=== PATIENT | male | born 1945 | race Caucasian/White ===

== ENCOUNTER → 2017-01-10 | Outpatient (CLI) | payer MEDICARE ==
--- NOTE | 2017-01-10 15:25 | US ---
EXAMINATION TYPE: US thyroid st tissue head/neck DATE OF EXAM: 01/10/2017 COMPARISON: US 11/25/2014 CLINICAL HISTORY: E04.1 Thyroid Nodule. F/U previous GLAND SIZE: Right Lobe: 3.7 x 1.5 x 1.8 cm Overall Parenchyma: homogenous Left Lobe: 4.5 x 1.5 x 1.5 cm Overall Parenchyma: homogeneous Isthmus Thickness: 0.3 cm NODULES RIGHT: # of nodules measured on right: 1 1. 0.6 X 0.7 x 0.7 cm hypoechoic mixed nodule at the lower pole with well-defined margins; This no dule is wider than tall and shows no intranodular vascularity. Prior size: 0.6 x 0.4 x 0.4 cm LEFT: # of nodules measured on left: 0 ISTHMUS: # of nodules measured in the isthmus: 0 Bilateral neck scanned, no evidence of lymphadenopathy. Sub-centimeter nodule on right, slightly incr eased in size from previous IMPRESSION: Subcentimeter nodule right lobe thyroid, stable.
== END ==
LOC: RADUSWWP 14:47
PROVIDERS: ATTEND Otolaryngology
DX: E04.1 Nontoxic single thyroid nodule (principal)
CPT/HCPCS: 76536

== ENCOUNTER → 2023-04-30 | Outpatient (CLI) | payer MEDICARE ==
--- NOTE | 2023-04-30 13:38 | XR ---
EXAMINATION TYPE: XR chest 2V DATE OF EXAM: 04/30/2023 1:33 PM COMPARISON: None TECHNIQUE: XR chest 2V Frontal and lateral views of the chest. CLINICAL INDICATION:Male, 77 years old with history of Z87.891 PERSONAL HISTORY OF NICOTINE DEPENDENC E; FINDINGS: Lungs/Pleura: There is no evidence of pleural effusion, focal consolidation, or pneumothorax. Pulmonary vascularity: Unremarkable. Heart/mediastinum: Cardiomediastinal silhouette is unremarkable. Atherosclerotic calcifications are seen in the aorta. Musculoskeletal: Multiple level degenerative disc disease changes seen throughout the spine. Other: Surgical clips in the upper abdomen. IMPRESSION: No acute cardiopulmonary disease/process.
== END | disposition home or self-care (01) ==
LOC: RADXRMAIN 13:17
PROVIDERS: ATTEND Family Medicine
DX: I70.0 Atherosclerosis of aorta (principal); R07.9 Chest pain, unspecified; Z87.891 Personal history of nicotine dependence
CPT/HCPCS: 71046

== ENCOUNTER 2023-11-19 07:55 | Emergency (ER) | payer MEDICARE ==
--- NOTE | 2023-11-19 08:19 | ED ---
General Adult HPI - General Chief complaint: Extremity Problem,Nontraumatic Stated complaint: L Leg Pain Time Seen by Provider: 11/19/23 08:09 Source: patient, RN notes reviewed, old records reviewed Mode of arrival: ambulatory Limitations: no limitations - History of Present Illness Initial comments: Patient is a 78-year-old male who presents emergency department complaining of left hip and leg pain. Atraumatic pain. Began yesterday morning. Walks daily on a treadmill and noticed that after this. States it started in his left groin and now radiates over the anterior aspect of his left thigh. Denies any leg swelling. Denies any sensory deficits. States it is worse with movement and when bearing weight. Denies any back pain. Pain is worse with flexion of the left hip. Denies any naomi knee pain or distal left lower extremity pain. Presents for further evaluation at this time. Has a history of hypertension, hyperlipidemia - Related Data Home Medications Medication Instructions Recorded Confirmed ALPRAZolam [Xanax] 0.25 mg PO HS 05/23/14 08/16/14 Aspirin EC [Ecotrin Low Dose] 81 mg PO DAILY 05/23/14 08/16/14 Pravastatin Sodium [Pravachol] 80 mg PO HS 05/23/14 08/16/14 amLODIPine BESYLATE/BENAZEPRIL 1 each PO DAILY 05/23/14 08/16/14 [Lotrel 5-20 MG] Fish Oil/Dha/Epa [Fish Oil 1,200 1 each PO DAILY 08/15/14 08/16/14 mg Fish Oil] Previous Rx's Medication Instructions Recorded HYDROcodone/APAP 7.5-325MG [Kinder 1 each PO Q4H PRN #60 tab 06/03/14 7.5] Cyclobenzaprine [Flexeril] 5 mg PO TID PRN 7 Days #21 tablet 11/19/23 Allergies Allergy/AdvReac Type Severity Reaction Status Date / Time No Known Allergies Allergy Verified 11/19/23 08:05 Review of Systems ROS Statement: Those systems with pertinent positive or pertinent negative responses have been documented in the HPI. Review of Systems: CONST: Denies fever EYES: Denies blurry vision ENT: Denies nasal congestion C/V: Denies Chest pain RESP: Denies shortness of breath GI: Denies abdominal pain : Denies dysuria SKIN: Denies rash. MSK: Endorses left hip and leg pain NEURO: Denies headache ROS Other: All systems not noted in ROS Statement are negative. Past Medical History Past Medical History: COPD, Hyperlipidemia, Hypertension, Osteoarthritis (OA) Additional Past Medical History / Comment(s): THYROID NODULE,FUCHS DISEASE OF THE CORNEA. History of Any Multi-Drug Resistant Organisms: None Reported Past Surgical History: Cholecystectomy, Joint Replacement Additional Past Surgical History / Comment(s): AKIRA CATARACTS, right knee replaced Past Anesthesia/Blood Transfusion Reactions: No Reported Reaction Past Psychological History: Anxiety Smoking Status: Never smoker Past Alcohol Use History: Occasional Past Drug Use History: None Reported - Past Family History Sister(s) Family Medical History: Cancer Additional Family Medical History / Comment(s): OVARIAN CA General Exam - General Exam Comments Initial Comments: General: Appears in mild distress secondary to left leg pain. HEAD: Normal with no signs of head trauma. EYES: EOMI. ENT: Hearing grossly intact. RESPIRATORY: No respiratory distress. C/V: Regular rate and rhythm. Pulses 2+ intact throughout. No edema in the left lower extremity. ABD: Abdomen is nondistended. EXT: No obvious deformity. Left leg is not shortened. Reduced range of motion of the left hip secondary to pain. Seems to be isolated in the left groin as well as the left quadriceps muscle. No posterior tenderness. No tenderness to palpation of the knee or distal to the knee. Neurovascular intact in the left lower extremity other than weakness secondary to pain. Seems to be worse with flexion. SKIN: No rashes or lesions observed on exposed skin. NEURO: Alert and oriented. No focal deficits, other than reduced range of motion of the left hip secondary to pain. Limitations: no limitations Course Vital Signs 11/19/23 11/19/23 08:02 10:19 Temperature 97.9 F 98 F Pulse Rate 95 91 Respiratory 20 18 Rate Blood Pressure 113/73 112/77 O2 Sat by Pulse 98 98 Oximetry Medical Decision Making - Medical Decision Making Was pt. sent in by a medical professional or institution (, PA, [employer], urgent care, hospital, or jail...) When possible be specific @ -No Did you speak to anyone other than the patient for history (EMS, parent, family, police, friend...)? What history was obtained from this source @ -No Did you review nursing and triage notes (agree or disagree)? Why? @ -I reviewed and agree with nursing and triage notes Were old charts reviewed (outside hosp., previous admission, EMS record, old EKG, old radiological studies, urgent care reports/EKG's, jail records)? Report findings @ -Old charts reviewed Differential Diagnosis (chest pain, altered mental status, abdominal pain women, abdominal pain men, vaginal bleeding, weakness, fever, dyspnea, syncope, headache, dizziness, GI bleed, back pain, seizure, CVA, palpatations, mental health, musculoskeletal)? @ -Differential Musculoskeletal Muscular strain, contusion, ligament sprain, fracture, arthritis, septic arthritis, bursitis, cellulitis, muscle spasm, nerve compression, DVT, arterial occlusion, herpes zoster, electrolyte abnormality, tumor.... This is not meant to be in all inclusive list EKG interpreted by me (3pts min.). @ -Not done X-rays interpreted by me (1pt min.). @ -Pelvis x-ray negative for any obvious traumatic injury CT interpreted by me (1pt min.). @ -Considered CT pelvis to rule out occult fracture but patient is ambulatory at this time. We both agreed to defer at this time. If symptoms worsen he can be present for evaluation. U/S interpreted by me (1pt. min.). @ -Ultrasound negative for DVT What testing was considered but not performed or refused? (CT, X-rays, U/S, labs)? Why? @ -None What meds were considered but not given or refused? Why? @ -None Did you discuss the management of the patient with other professionals (professionals i.e. , PA, [employer]ER, lab, RT, psych nurse, social media content specialist, supervisor of guidance and testing, teacher, chief nursing officer, case making machine operator)? Give summary @ -No Was smoking cessation discussed for >3mins.? @ -No Was critical care preformed (if so, how long)? @ -No Were there social determinants of health that impacted care today? How? (Homelessness, low income, unemployed, alcoholism, drug addiction, transportation, low edu. Level, literacy, decrease access to med. care, group home, rehab)? @ -No Was there de-escalation of care discussed even if they declined (Discuss DNR or withdrawal of care, Hospice)? DNR status @ -No What co-morbidities impacted this encounter? (DM, HTN, Smoking, COPD, CAD, Cancer, CVA, ARF, Chemo, Hep., AIDS, mental health diagnosis, sleep apnea, morbid obesity)? @ -None Was patient admitted / discharged? Hospital course, mention meds given and route, prescriptions, significant lab abnormalities, going to OR and other pertinent info. @ -Based on the patient's presentation and physical exam, presents the emergency department for evaluation of atraumatic left hip and leg pain. Seems to be musculoskeletal in nature, possible muscle strain versus bony traumatic injury. Cannot definitively rule out DVT. Therefore we will start with x-ray as well as ultrasound of the left lower extremity to evaluate for fracture or DVT. Patient was in agreement this plan. Discussed pain medications and he was amenable to a dose of Flexeril here in the department as he took Motrin prior to arrival. Patient was in agreement this plan. Vital signs within acceptable limits. Patient's imaging unremarkable. On reevaluation, patient is able to ambulate and bear weight without any issue. Considered CT pelvis to rule out occult fracture but patient is ambulatory at this time. We both agreed to defer at this time. If symptoms worsen he can be present for evaluation. I will provide the patient with a prescription for Flexeril. I instructed the patient to follow up with their PCP in the next 1-3 days.. I explained that the patient should return to the emergency department if they experience any worsening symptoms. Strict return precautions were discussed with the patient. The patient expressed understanding of these instructions. I answered all questions that the patient had. The patient was discharged home in good condition with their prescriptions and follow up information. Discussed he likely has a muscle strain and recommended rest, ice, elevation. Instructed not to walk on the treadmill. Patient was in agreement this plan. Undiagnosed new problem with uncertain prognosis? @ -No Drug Therapy requiring intensive monitoring for toxicity (Heparin, Nitro, Insulin, Cardizem)? @ -No Were any procedures done? @ -No Diagnosis/symptom? @ -Muscle strain Acute, or Chronic, or Acute on Chronic? @ -Acute Uncomplicated (without systemic symptoms) or Complicated (systemic symptoms)? @ -Uncomplicated Side effects of treatment? @ -None Exacerbation, Progression, or Severe Exacerbation] @ -No Poses a threat to life or bodily function? @ -No Disposition Clinical Impression: Muscle strain Disposition: HOME SELF-CARE Condition: Good Instructions (If sedation given, give patient instructions): Muscle Strain (ED) Prescriptions: Cyclobenzaprine [Flexeril] 5 mg PO TID PRN 7 Days #21 tablet PRN Reason: Pain Is patient prescribed a controlled substance at d/c from ED?: No Referrals: Javier Robbins DO [Primary Care Provider] - 1-2 days Time of Disposition: 10:11
[2023-11-19] MEDS: CYCLOBENZAPRINE 5 MG TAB PO STA (08:21)
--- NOTE | 2023-11-19 08:37 | XR ---
EXAMINATION TYPE: XR Hip LT and AP Pelvis DATE OF EXAM: 11/19/2023 CLINICAL HISTORY: pain TECHNIQUE: AP and frogleg views of the left hip are obtained. Single view pelvis was submitted. COMPARISON: None. FINDINGS: There is no acute fracture/dislocation evident. The joint space appears mildly narrowed. The overlying soft tissue appears unremarkable. IMPRESSION: 1. There is no acute fracture or dislocation.ICD 10 NO FRACTURE, INITIAL EVALUATION
--- NOTE | 2023-11-19 09:57 | US ---
EXAMINATION TYPE: US venous doppler duplex LE LT DATE OF EXAM: 11/19/2023 8:15 AM COMPARISON: NONE CLINICAL INDICATION: Male, 78 years old with history of left hip/leg pain; Left hip and thigh. No red ness or swelling. SIDE PERFORMED: Left TECHNIQUE: The lower extremity deep venous system is examined utilizing real time linear array sonog tamia with graded compression, doppler sonography and color-flow sonography. VESSELS IMAGED: Common Femoral Vein Deep Femoral Vein Greater Saphenous Vein * Femoral Vein Popliteal Vein Small Saphenous Vein * Proximal Calf Veins (* superficial vessels) Left Leg: Negative for DVT IMPRESSION: Grayscale, color doppler, spectral doppler imaging performed of the deep veins of the lo wer extremities. There is normal flow, compressibility, vascular waveforms.
[2023-11-19 11:00] VITALS: BP 112/77; PULSE 91; RESP 18; TEMP 98
== END 2023-11-19 10:21 | disposition home or self-care (01) ==
LOC: EC 07:55
DX: S86.912A Strain of unspecified muscle(s) and tendon(s) at lower leg level, left leg, initial encounter (principal); Z90.49 Acquired absence of other specified parts of digestive tract; X58.XXXA Exposure to other specified factors, initial encounter
CPT/HCPCS: 73502; 99284

== ENCOUNTER 2023-12-25 06:24 | Inpatient (IN) | payer MEDICARE ==
[2023-12-25 06:36] LABS: Glucose,Whole Blood 194 mg/dL (70-110)
--- NOTE | 2023-12-25 06:44 | ED ---
SOB HPI - General Chief Complaint: Shortness of Breath Stated Complaint: ELSI Time Seen by Provider: 12/25/23 06:30 Source: patient, family, EMS, RN notes reviewed Mode of arrival: EMS Limitations: no limitations - History of Present Illness Initial Comments: This is a 78-year-old male who presents to the emergency department for shortness of breath, weakness, nausea, and vomiting. Patient's states that they got back from a cruise to [place] 2 weeks ago, and he has not been feeling well since then. She herself has had a sinus infection, however he has had coughing and shortness of breath that was not getting any better. Patient denies any chest pain. Yesterday he went to a walk-in clinic and was given a prescription for Augmentin. He took his first dose last night. Around 2 AM he woke up and felt like he was struggling to breathe. He was also nauseous and proceeded to vomit. He got up to use the bathroom around 6 AM and had a syncop al episode. Patient denies hitting his head or taking any blood thinners. His wonders if he may have developed a reaction to the Augmentin. MD Complaint: shortness of breath, cough - Related Data Home Medications Medication Instructions Recorded Confirmed Aspirin EC [Ecotrin Low Dose] 81 mg PO DAILY 05/23/14 12/25/23 Pravastatin Sodium [Pravachol] 80 mg PO HS 05/23/14 12/25/23 amLODIPine BESYLATE/BENAZEPRIL 1 cap PO DAILY 05/23/14 12/25/23 [Lotrel 5-20 MG] ALPRAZolam [Xanax] 0.5 mg PO BID PRN 12/25/23 12/25/23 Amoxic-Pot Clav 875-125Mg 1 tab PO BID 12/25/23 12/25/23 [Augmentin 875-125] Tamsulosin HCl [Flomax] 0.4 mg PO DAILY 12/25/23 12/25/23 Allergies Allergy/AdvReac Type Severity Reaction Status Date / Time No Known Allergies Allergy Verified 12/25/23 07:55 Review of Systems ROS Statement: Those systems with pertinent positive or pertinent negative responses have been documented in the HPI. ROS Other: All systems not noted in ROS Statement are negative. Past Medical History Past Medical History: COPD, Hyperlipidemia, Hypertension, Osteoarthritis (OA) Additional Past Medical History / Comment(s): THYROID NODULE,FUCHS DISEASE OF THE CORNEA. History of Any Multi-Drug Resistant Organisms: None Reported Past Surgical History: Cholecystectomy, Joint Replacement Additional Past Surgical History / Comment(s): AKIRA CATARACTS, right knee replaced Past Anesthesia/Blood Transfusion Reactions: No Reported Reaction Past Psychological History: Anxiety Smoking Status: Never smoker Past Alcohol Use History: Occasional Past Drug Use History: None Reported - Past Family History Sister(s) Family Medical History: Cancer Additional Family Medical History / Comment(s): OVARIAN CA General Exam Limitations: no limitations General appearance: alert, in distress Head exam: Present: atraumatic, normocephalic, normal inspection Respiratory exam: Present: decreased breath sounds, prolonged expiratory Cardiovascular Exam: Present: normal rhythm, tachycardia GI/Abdominal exam: Present: soft, normal bowel sounds. Absent: distended, tenderness, guarding, rebound, rigid Neurological exam: Present: alert, oriented X3, CN II-XII intact Psychiatric exam: Present: normal affect, normal mood Skin exam: Present: warm, dry, intact, normal color. Absent: rash Course Vital Signs 12/25/23 12/25/23 12/25/23 06:28 06:33 06:55 Pulse Rate 101 H 90 Respiratory 35 H 35 H Rate Blood Pressure 130/53 O2 Sat by Pulse 94 L Oximetry 12/25/23 12/25/23 12/25/23 07:02 07:10 07:44 Pulse Rate 90 91 100 Respiratory 20 19 Rate Blood Pressure 69/48 103/83 O2 Sat by Pulse 94 L 98 Oximetry 12/25/23 12/25/23 08:34 09:35 Pulse Rate 103 H 106 H Respiratory 22 20 Rate Blood Pressure 97/51 114/71 O2 Sat by Pulse 96 94 L Oximetry Medical Decision Making - Medical Decision Making This is a 78 year old male who presents to the emergency department for shortness of breath. Was pt. sent in by a medical professional or institution? @ -No Did you speak to anyone other than the patient for history? @ -No Did you review nursing and triage notes? @ -Yes, and I agree, it is accurate with regards to the patient's symptoms. Were old charts reviewed? @ -No Differential Diagnosis? @ -Differential Dyspnea: Coronary syndrome, arrhythmia, tamponade, asthma, COPD, pulmonary embolism, pneumonia, pneumothorax, pulmonary effusion, anaphylaxis, diabetic ketoacidosis, flailed chest, pulmonary contusion, diaphragmatic rupture, anemia, neuromuscular, this is not meant to be an all-inclusive list. EKG interpreted by me (3pts min.)? @ -EKG interpreted by me demonstrating the following: Sinus rhythm. Ventric ular rate 97 bpm, SC interval 172 ms, QRS duration 97 ms, QTc 383 ms. X-rays interpreted by me (1pt min.)? @ -Chest x-ray obtained, my interpretation identifies no localized consolidations or infiltrates. CT interpreted by me (1pt min.)? @ -Not obtained U/S interpreted by me (1pt. min.)? @ -Duplex US of the bilateral LE obtained. My interpretation identifies no evidence of a DVT. What testing was considered but not performed? (CT, X-rays, U/S, labs)? Why? @ -None What meds were considered but not given? Why? @ -None Did you discuss the management of the patient with other professionals? @ -Yes, Mirtha Murcia with [facility], who accepts the patient for admission. Did you reconcile home meds? @ -Yes Was smoking cessation discussed for >3mins.? @ -No Was critical care preformed (if so, how long)? @ -Yes, >35 minutes Were there social determinants of health that impacted care today? How? (Homelessness, low income, unemployed, alcoholism, drug addiction, transportation, low edu. Level, literacy, decrease access to med. care, detention, rehab)? @ -No Was there de-escalation of care discussed even if they declined? (Discuss DNR or withdrawal of care, Hospice)? @ -No What co-morbidities impacted this encounter? (DM, HTN, Smoking, COPD, CAD, Cancer, CVA, Hep., AIDS, mental health diagnosis, sleep apnea, morbid obesity)? @ -COPD Was patient admitted / discharged? @ -Admitted. On arrival, patient was exhibiting a fair amount of respiratory distress and appeared dusky and diaphoretic. He had an oxygen saturation of approximately 90% on room air. Given his distress with somewhat lower oxygen saturation, nasal cannula was applied. Patient's blood pressure was within acceptable limits on arrival at 130/53. However he suddenly started to become hypotensive with a blood pressure of 69/48. A total of 2.5 L bolus of IV fluids was administered which the patient responded to, and his BP normalized. Lab work demonstrates leukocytosis with a white blood cell count of 20.8. Patient also has an TRA with a creatinine of 1.72 and GFR 38. Lactic acid elevated at 4.4. D-dimer elevated at 4.93, however due to patient's renal function, CTA could not be obtained. COVID, influenza, and RSV testing negative. Chest x-ray reveals possible underlying COPD and a borderline heart size without evidence for acute process. At the point of admission, it is not clear patient's symptoms are related to potential underlying infection due to patient meeting SIRS criteria versus pulmonary embolus based on dyspnea with syncope and elevated D-dimer. Duplex ultrasound of the bilateral lower extremities and VQ scan ordered with results pending at the time of admission. Per the recommendation of ED attending, patient was started on heparin protocol for potential clot. We also obtained blood cultures and he was given 2g of ceftriaxone empirically. Undiagnosed new problem with uncertain prognosis? @ -None Drug Therapy requiring intensive monitoring for toxicity (Heparin, Nitro, Insulin, Cardizem)? @ -Heparin Were any procedures done? @ -None Diagnosis/symptom? @ -Dyspnea, SIRS, hypotension Acute, or Chronic, or Acute on Chronic? @ -Acute Uncomplicated (without systemic symptoms) or Complicated (systemic symptoms)? @ -Complicated Side effects of treatment? @ -None Exacerbation, Progression, or Severe Exacerbation] @ -Not applicable Poses a threat to life or bodily function? @ -Yes, can lead to end organ dysfunction and . This case was discussed in detail with the attending ED physician, Dr. Barajas. Presentation, findings, and treatment plan discussed in detail as well. - Lab Data Result diagrams: 12/25/23 06:38 12/25/23 06:38 Lab Results 12/25/23 12/25/23 12/25/23 Range/Units 06:34 06:38 06:38 WBC 20.8 H (3.8-10.6) k/uL RBC 5.81 (4.30-5.90) m/uL Hgb 18.1 H (13.0-17.5) gm/dL Hct 53.1 H (39.0-53.0) % MCV 91.3 (80.0-100.0) fL MCH 31.2 (25.0-35.0) pg MCHC 34.1 (31.0-37.0) g/dL RDW 12.9 (11.5-15.5) % Plt Count 233 (150-450) k/uL MPV 7.7 Neutrophils % 90 % Lymphocytes % 3 % Monocytes % 5 % Eosinophils % 1 % Basophils % 1 % Neutrophils # 18.6 H (1.3-7.7) k/uL Lymphocytes # 0.5 L (1.0-4.8) k/uL Monocytes # 1.1 H (0-1.0) k/uL Eosinophils # 0.3 (0-0.7) k/uL Basophils # 0.1 (0-0.2) k/uL Manual Slide Review Performed RBC Morphology Normal PT 10.5 (10.0-12.5) sec INR 0.9 (<1.2) APTT 21.9 L (22.0-30.0) sec D-Dimer (<0.60) mg/L FEU Sodium (137-145) mmol/L Potassium (3.5-5.1) mmol/L Chloride (98-107) mmol/L Carbon Dioxide (22-30) mmol/L Anion Gap mmol/L BUN (9-20) mg/dL Creatinine (0.66-1.25) mg/dL Est GFR (CKD-EPI)AfAm (>60 ml/min/1.73 sqM) Est GFR (CKD-EPI)NonAf (>60 ml/min/1.73 sqM) Glucose (74-99) mg/dL POC Glucose (mg/dL) 194 H (70-110) mg/dL POC Glu Basketball Referee ID GuillenBritt Lactic Ac Sepsis Rflx Plasma Lactic Acid Man (0.7-2.0) mmol/L Calcium (8.4-10.2) mg/dL Magnesium (1.6-2.3) mg/dL Total Bilirubin (0.2-1.3) mg/dL AST (17-59) U/L ALT (4-49) U/L Alkaline Phosphatase (38-126) U/L Troponin I (0.000-0.034) ng/mL NT-Pro-B Natriuret Pep pg/mL Total Protein (6.3-8.2) g/dL Albumin (3.5-5.0) g/dL Influenza Type A (PCR) (Not Detectd) Influenza Type B (PCR) (Not Detectd) RSV (PCR) (Not Detectd) SARS-CoV-2 (PCR) (Not Detectd) 12/25/23 12/25/23 12/25/23 Range/Units 06:38 06:38 06:38 WBC (3.8-10.6) k/uL RBC (4.30-5.90) m/uL Hgb (13.0-17.5) gm/dL Hct (39.0-53.0) % MCV (80.0-100.0) fL MCH (25.0-35.0) pg MCHC (31.0-37.0) g/dL RDW (11.5-15.5) % Plt Count (150-450) k/uL MPV Neutrophils % % Lymphocytes % % Monocytes % % Eosinophils % % Basophils % % Neutrophils # (1.3-7.7) k/uL Lymphocytes # (1.0-4.8) k/uL Monocytes # (0-1.0) k/uL Eosinophils # (0-0.7) k/uL Basophils # (0-0.2) k/uL Manual Slide Review RBC Morphology PT (10.0-12.5) sec INR (<1.2) APTT (22.0-30.0) sec D-Dimer (<0.60) mg/L FEU Sodium 135 L (137-145) mmol/L Potassium 4.9 (3.5-5.1) mmol/L Chloride 103 (98-107) mmol/L Carbon Dioxide 15 L (22-30) mmol/L Anion Gap 17 mmol/L BUN 26 H (9-20) mg/dL Creatinine 1.72 H (0.66-1.25) mg/dL Est GFR (CKD-EPI)AfAm 43 (>60 ml/min/1.73 sqM) Est GFR (CKD-EPI)NonAf 38 (>60 ml/min/1.73 sqM) Glucose 185 H (74-99) mg/dL POC Glucose (mg/dL) (70-110) mg/dL POC Glu Basketball Referee ID Lactic Ac Sepsis Rflx Plasma Lactic Acid Man 4.4 H* (0.7-2.0) mmol/L Calcium 9.8 (8.4-10.2) mg/dL Magnesium 2.1 (1.6-2.3) mg/dL Total Bilirubin 2.2 H (0.2-1.3) mg/dL AST 41 (17-59) U/L ALT 25 (4-49) U/L Alkaline Phosphatase 119 (38-126) U/L Troponin I <0.012 (0.000-0.034) ng/mL NT-Pro-B Natriuret Pep 84 pg/mL Total Protein 8.4 H (6.3-8.2) g/dL Albumin 5.1 H (3.5-5.0) g/dL Influenza Type A (PCR) (Not Detectd) Influenza Type B (PCR) (Not Detectd) RSV (PCR) (Not Detectd) SARS-CoV-2 (PCR) (Not Detectd) 12/25/23 12/25/23 12/25/23 Range/Units 06:38 07:10 08:08 WBC (3.8-10.6) k/uL RBC (4.30-5.90) m/uL Hgb (13.0-17.5) gm/dL Hct (39.0-53.0) % MCV (80.0-100.0) fL MCH (25.0-35.0) pg MCHC (31.0-37.0) g/dL RDW (11.5-15.5) % Plt Count (150-450) k/uL MPV Neutrophils % % Lymphocytes % % Monocytes % % Eosinophils % % Basophils % % Neutrophils # (1.3-7.7) k/uL Lymphocytes # (1.0-4.8) k/uL Monocytes # (0-1.0) k/uL Eosinophils # (0-0.7) k/uL Basophils # (0-0.2) k/uL Manual Slide Review RBC Morphology PT (10.0-12.5) sec INR (<1.2) APTT (22.0-30.0) sec D-Dimer 4.93 H (<0.60) mg/L FEU Sodium (137-145) mmol/L Potassium (3.5-5.1) mmol/L Chloride (98-107) mmol/L Carbon Dioxide (22-30) mmol/L Anion Gap mmol/L BUN (9-20) mg/dL Creatinine (0.66-1.25) mg/dL Est GFR (CKD-EPI)AfAm (>60 ml/min/1.73 sqM) Est GFR (CKD-EPI)NonAf (>60 ml/min/1.73 sqM) Glucose (74-99) mg/dL POC Glucose (mg/dL) (70-110) mg/dL POC Glu Basketball Referee ID Lactic Ac Sepsis Rflx Y Plasma Lactic Acid Man (0.7-2.0) mmol/L Calcium (8.4-10.2) mg/dL Magnesium (1.6-2.3) mg/dL Total Bilirubin (0.2-1.3) mg/dL AST (17-59) U/L ALT (4-49) U/L Alkaline Phosphatase (38-126) U/L Troponin I (0.000-0.034) ng/mL NT-Pro-B Natriuret Pep pg/mL Total Protein (6.3-8.2) g/dL Albumin (3.5-5.0) g/dL Influenza Type A (PCR) Not Detected (Not Detectd) Influenza Type B (PCR) Not Detected (Not Detectd) RSV (PCR) Not Detected (Not Detectd) SARS-CoV-2 (PCR) Not Detected (Not Detectd) - Radiology Data Radiology results: report reviewed, image reviewed Disposition Clinical Impression: Dyspnea, SIRS (systemic inflammatory response syndrome), Hypotension Disposition: ADMITTED IP TO THIS [facility] Time of Disposition: 08:42
[2023-12-25] MEDS: methylPREDNISolone SOD SUCCI 125 MG/2 ML VIAL IV STA (06:54)
[2023-12-25] MEDS: IPRATROPIUM-ALBUTEROL 3 ML NEB INHALATION STA (06:54)
[2023-12-25] MEDS: ONDANSETRON 4 MG/2 ML VIAL IVP STA (06:56)
[2023-12-25] MEDS: SODIUM CHLORIDE 0.9% 1,000 ML IV STA ×3 (06:56→07:23)
[2023-12-25 07:07] LABS: Basophils # (A) 0.1 k/uL (0-0.2); Basophils % (A) 1 %; Eosinophils # (A) 0.3 k/uL (0-0.7); Eosinophils % (A) 1 %; HCT 53.1 % (39.0-53.0); HGB 18.1 gm/dL (13.0-17.5); Lymphocytes # (A) 0.5 k/uL (1.0-4.8); Lymphocytes % (A) 3 %; MCH 31.2 pg (25.0-35.0); MCHC 34.1 g/dL (31.0-37.0); MCV 91.3 fL (80.0-100.0); Mean Platelet Volume 7.7; Monocytes # (A) 1.1 k/uL (0-1.0); Monocytes % (A) 5 %; Neutrophils # (A) 18.6 k/uL (1.3-7.7); Neutrophils % (A) 90 %; Platelet Count 233 k/uL (150-450); RBC 5.81 m/uL (4.30-5.90); RDW 12.9 % (11.5-15.5); WBC 20.8 k/uL (3.8-10.6)
[2023-12-25 07:12] LABS: INR 0.9 (<1.2); Prothrombin Time 10.5 sec (10.0-12.5)
[2023-12-25 07:15] LABS: Partial Thromboplastin Time 21.9 sec (22.0-30.0)
[2023-12-25] MEDS: SODIUM CHLORIDE 0.9% 500 ML 500 ML IV STA (07:23)
[2023-12-25 07:29] LABS: ALT 25 U/L (4-49); African American GFR (CKD) 43 (>60 ml/min/1.73 sqM); Anion Gap 17 mmol/L; Blood Urea Nitrogen 26 mg/dL (9-20); Calcium 9.8 mg/dL (8.4-10.2); Carbon Dioxide 15 mmol/L (22-30); Chloride 103 mmol/L (98-107); Glucose 185 mg/dL (74-99); Non-African American GFR(CKD) 38 (>60 ml/min/1.73 sqM); Sodium 135 mmol/L (137-145); Total Bilirubin 2.2 mg/dL (0.2-1.3)
[2023-12-25 07:38] LABS: NT-Pro-B-Type Natriuretic Pept 84 pg/mL
--- NOTE | 2023-12-25 07:45 | XR ---
EXAMINATION TYPE: XR chest 2V DATE OF EXAM: 12/25/2023 COMPARISON: 04/30/2023 HISTORY: 78-year-old male shortness of breath, difficulty breathing TECHNIQUE: AP and lateral views FINDINGS: Heart borderline in size. Mild hyperinflation. Some strandy atelectasis in the lower lungs without co nsolidation or pleural effusion. Scattered tissue within the mid and lower thoracic spine. IMPRESSION: Borderline heart size and possible underlying COPD. No definite acute process.
[2023-12-25 07:58] LABS: AST 41 U/L (17-59); Albumin 5.1 g/dL (3.5-5.0); Magnesium 2.1 mg/dL (1.6-2.3); Potassium 4.9 mmol/L (3.5-5.1); Total Protein 8.4 g/dL (6.3-8.2)
[2023-12-25 07:59] LABS: Alkaline Phosphatase 119 U/L (38-126)
[2023-12-25] MEDS ORDERED: ALPRAZolam 0.5 MG TAB PO PRN (08:15)
[2023-12-25] MEDS: amLODIPine 5 MG TAB PO SCH (08:21)
[2023-12-25] MEDS: lisinopriL 20 MG TAB PO SCH (08:22)
[2023-12-25] MEDS: TAMSULOSIN 0.4 MG CAP.ER.24H PO SCH (08:34)
[2023-12-25] MEDS: ASPIRIN 81 MG PO SCH (08:34)
[2023-12-25] MEDS ORDERED: HYDROcodone/APAP 5-325MG 1 EACH TAB PO PRN (08:42)
[2023-12-25] MEDS ORDERED: MORPHINE SULFATE 4 MG/ML SYRINGE IV PRN (08:42)
[2023-12-25] MEDS ORDERED: ONDANSETRON 4 MG/2 ML VIAL IVP PRN (08:42)
[2023-12-25] MEDS ORDERED: ACETAMINOPHEN TAB 325 MG TAB PO PRN (08:42)
[2023-12-25] MEDS ORDERED: NALOXONE 0.4 MG/ML 1 ML VIAL IV PRN (08:42)
[2023-12-25 08:48] LABS: RBC Morphology Normal
[2023-12-25] MEDS: PANTOPRAZOLE 40 MG/10 ML VIAL IV SCH (08:59)
[2023-12-25] MEDS ORDERED: HEPARIN SODIUM 1,000 UN/ML (10ML VL) IV PRN (09:00)
[2023-12-25] MEDS: HEPARIN SOD,PORK IN 0.45% NACL 25,000 UNIT in 0.45% NACL 1 250ML.BAG IV SCH (09:32)
[2023-12-25] MEDS: HEPARIN SODIUM 1,000 UN/ML (10ML VL) IV ONE (09:32)
--- NOTE | 2023-12-25 10:31 | US ---
EXAMINATION TYPE: US venous doppler duplex LE DATE OF EXAM: 12/25/2023 8:37 AM COMPARISON: CLINICAL INDICATION: Male, 78 years old with history of Dyspnea, elevated d-dimer, recent trip; No re dness or swelling. Not on blood thinners. SIDE PERFORMED: Bilateral TECHNIQUE: The lower extremity deep venous system is examined utilizing real time linear array sonog tamia with graded compression, doppler sonography and color-flow sonography. VESSELS IMAGED: Common Femoral Vein Deep Femoral Vein Greater Saphenous Vein * Femoral Vein Popliteal Vein Small Saphenous Vein * Proximal Calf Veins Posterior tibial veins (* superficial vessels) Right Leg: Negative for DVT Left Leg: Negative for DVT IMPRESSION: No evidence for DVT within the bilateral lower extremities.
[2023-12-25] MEDS: AZITHROMYCIN 500 MG in SODIUM CHLORIDE 0.9% 250 ML IVPB SCH (10:41)
--- NOTE | 2023-12-25 11:08 | P.HPIM ---
History of Present Illness H&P Date: 12/25/23 History of present illness; patient is a 78-year-old gentleman with past medical history significant for hypertension, hyperlipidemia presented to the ER because of shortness of breath and weakness for the last 2 weeks. Patient and his recently traveled back from [place] and he states that he has not been feeling well since then. Patient has been having cough and shortness of breath on exertion that has been worsening. Shortness of breath is present on exertion. There is no complaint of fever or chills. Patient was having nausea and vomiting. Patient was seen at a walk-in clinic yesterday and was given Augmentin which she took last night. Patient this morning while trying to use restroom had a syncopal episode. Because of this shortness of breath and weakness patient was brought to the ER Initial lab work done in the ER showed WBC 20.8, hemoglobin 18.1, platelet count 233, D-dimer 4.93, INR 0.9, sodium 135, potassium 4.9, BUN 26, creatinine 1.72, glucose 194, lactate 4.4, bilirubin 2.2 Influenza A not detected Influenza B not detected RSV not detected COVID-19 not detected EKG done in the ER showed heart rate of97 , no ST segment elevation or depression seen, no T-wave inversions seen. Chest x-ray done in the ER showed borderline heart size and possibly underlying COPD, no definite acute process Patient admitted to internal medicine service REVIEW OF SYSTEMS: CONSTITUTIONAL: No fever, complaining of weakness HEENT: No recent visual problems or hearing problems. Denied any sore throat. CARDIOVASCULAR: As mentioned in HPI PULMONARY as mentioned in HPI GASTROINTESTINAL: No diarrhea, no nausea, no vomiting, no abdominal pain. NEUROLOGICAL: No headaches, no weakness, no numbness. Patient did mention that patient have episodes on regular basis where he stares into space, most often after taking a nap, patient does not lose control over bowel or urine during these episodes. HEMATOLOGICAL: Denies any bleeding or petechiae. GENITOURINARY: Denies any burning micturition, frequency, or urgency. MUSCULOSKELETAL/RHEUMATOLOGICAL: Denies any joint pain, swelling, or any muscle pain. ENDOCRINE: Denies any polyuria or polydipsia. The rest of the 14-point review of systems is negative. PHYSICAL EXAMINATION: GENERAL: The patient is alert and oriented x3, not in any acute distress. Well developed, well nourished. HEENT: Pupils are round and equally reacting to light. EOMI. No scleral icterus. No conjunctival pallor. Normocephalic, atraumatic. No pharyngeal erythema. No thyromegaly. CARDIOVASCULAR: S1 and S2 present. No murmurs, rubs, or gallops. PULMONARY: Chest is clear to auscultation, no wheezing or crackles. ABDOMEN: Soft, nontender, nondistended, normoactive bowel sounds. No palpable organomegaly. MUSCULOSKELETAL: No joint swelling or deformity. EXTREMITIES: No cyanosis, clubbing, or pedal edema. NEUROLOGICAL: Gross neurological examination did not reveal any focal deficits. SKIN: No rashes. Assessment and plan Acute hypoxic respiratory failure Acute kidney injury Lactic acidosis Syncopal episode Pneumonia Exertional dyspnea Elevated D-dimer Hypertension Hyperlipidemia Monitor vital signs Monitor CBC Monitor CMP Continue telemetry monitoring Ordered blood culture Ordered Pro-Jeferson Serial lactic acid levels Continue IV fluids Patient is clinically behaving like pneumonia, will continue with IV Rocephin azithromycin Because of elevated D-dimer and recent travels Ordered ultrasound lower extremities, continue pharmacy to dose heparin Ordered VQ scan Hold blood pressure medications for now Consult pulmonary Labs and medication were reviewed.. Continue same treatment. Continue with symptomatic treatment. Resume home medication. Monitor labs and vitals. DVT and GI prophylaxis. Further recommendations as per clinical course of the patient Dictation was produced using [employer] dictation software. please excuse any grammatical, word or spelling errors. Past Medical History Past Medical History: COPD, Hyperlipidemia, Hypertension, Osteoarthritis (OA) Additional Past Medical History / Comment(s): THYROID NODULE,FUCHS DISEASE OF THE [place]NEA. History of Any Multi-Drug Resistant Organisms: None Reported Past Surgical History: Cholecystectomy, Joint Replacement Additional Past Surgical History / Comment(s): AKIRA CATARACTS, right knee replaced Past Anesthesia/Blood Transfusion Reactions: No Reported Reaction Past Psychological History: Anxiety Smoking Status: Never smoker Past Alcohol Use History: Occasional Past Drug Use History: None Reported - Past Family History Sister(s) Family Medical History: Cancer Additional Family Medical History / Comment(s): OVARIAN CA Medications and Allergies Home Medications Medication Instructions Recorded Confirmed Type Aspirin EC [Ecotrin Low Dose] 81 mg PO DAILY 05/23/14 12/25/23 History Pravastatin Sodium [Pravachol] 80 mg PO HS 05/23/14 12/25/23 History amLODIPine BESYLATE/BENAZEPRIL 1 cap PO DAILY 05/23/14 12/25/23 History [Lotrel 5-20 MG] ALPRAZolam [Xanax] 0.5 mg PO BID PRN 12/25/23 12/25/23 History Amoxic-Pot Clav 875-125Mg 1 tab PO BID 12/25/23 12/25/23 History [Augmentin 875-125] Tamsulosin HCl [Flomax] 0.4 mg PO DAILY 12/25/23 12/25/23 History Allergies Allergy/AdvReac Type Severity Reaction Status Date / Time No Known Allergies Allergy Verified 12/25/23 07:55 Physical Exam Vitals: Vital Signs Pulse Resp BP Pulse Ox 12/25/23 09:35 106 H 20 114/71 94 L 12/25/23 08:34 103 H 22 97/51 96 12/25/23 07:44 100 19 103/83 98 12/25/23 07:10 91 20 69/48 94 L 12/25/23 07:02 90 12/25/23 06:55 90 12/25/23 06:33 35 H 12/25/23 06:28 101 H 35 H 130/53 94 L Intake and Output 12/24/23 12/25/23 12/25/23 22:59 06:59 14:59 Other: Weight 70.307 kg Results CBC & Chem 7: 12/25/23 06:38 12/25/23 06:38 Labs: Abnormal Lab Results - Last 24 Hours (Table) 12/25/23 12/25/23 12/25/23 Range/Units 06:34 06:38 06:38 WBC 20.8 H (3.8-10.6) k/uL Hgb 18.1 H (13.0-17.5) gm/dL Hct 53.1 H (39.0-53.0) % Neutrophils # 18.6 H (1.3-7.7) k/uL Lymphocytes # 0.5 L (1.0-4.8) k/uL Monocytes # 1.1 H (0-1.0) k/uL APTT 21.9 L (22.0-30.0) sec D-Dimer (<0.60) mg/L FEU Sodium (137-145) mmol/L Carbon Dioxide (22-30) mmol/L BUN (9-20) mg/dL Creatinine (0.66-1.25) mg/dL Glucose (74-99) mg/dL POC Glucose (mg/dL) 194 H (70-110) mg/dL Plasma Lactic Acid Man (0.7-2.0) mmol/L Total Bilirubin (0.2-1.3) mg/dL Total Protein (6.3-8.2) g/dL Albumin (3.5-5.0) g/dL 12/25/23 12/25/23 12/25/23 Range/Units 06:38 06:38 06:38 WBC (3.8-10.6) k/uL Hgb (13.0-17.5) gm/dL Hct (39.0-53.0) % Neutrophils # (1.3-7.7) k/uL Lymphocytes # (1.0-4.8) k/uL Monocytes # (0-1.0) k/uL APTT (22.0-30.0) sec D-Dimer 4.93 H (<0.60) mg/L FEU Sodium 135 L (137-145) mmol/L Carbon Dioxide 15 L (22-30) mmol/L BUN 26 H (9-20) mg/dL Creatinine 1.72 H (0.66-1.25) mg/dL Glucose 185 H (74-99) mg/dL POC Glucose (mg/dL) (70-110) mg/dL Plasma Lactic Acid Man 4.4 H* (0.7-2.0) mmol/L Total Bilirubin 2.2 H (0.2-1.3) mg/dL Total Protein 8.4 H (6.3-8.2) g/dL Albumin 5.1 H (3.5-5.0) g/dL
[2023-12-25 11:54] LABS: Appearance,Urine Cloudy (Clear); Bacteria,Urine Rare /hpf; Bilirubin,Urine Negative (Negative); Blood,Urine Small (Negative); Color,Urine Yellow; Glucose,Urine (UA) Trace (Negative); Hyaline Casts,Urine 19 /lpf (0-2); Ketones,Urine Negative (Negative); Leukocyte Esterase,Urine Negative (Negative); Mucus,Urine Few /hpf; Nitrite,Urine Negative (Negative); PH, Urine 5.5 (5.0-8.0); Protein,Urine 1+ (Negative); RBC,Urine <1 /hpf (0-5); Specific Gravity,Urine 1.014 (1.001-1.035); Squamous Epithelial Cell,Urine 1 /hpf (0-4); Urobilinogen,Urine <2.0 mg/dL (<2.0); WBC,Urine 5 /hpf (0-5)
[2023-12-25] MEDS: methylPREDNISolone SOD SUCCI 125 MG/2 ML VIAL IV SCH (12:51)
--- NOTE | 2023-12-25 16:23 | P.CNPUL ---
History of Present Illness Consult date: 12/25/23 Requesting physician: Nadir Cowart Reason for consult: dyspnea Chief complaint: Syncope History of present illness: This is a pleasant 78-year-old male patient with a known history of hyperlipidem ia, hypertension, anxiety who had been having issues with shortness of breath, cough congestion and weakness. He had been on a cruise to [place] 2 weeks ago. He has not felt well since. He had been seen in a walk-in clinic yesterday and given a prescription for Augmentin which he took 1 dose. Approximately 2:00 this morning he was feeling nauseous and proceeded to vomit. He was up to the bathroom at 6 AM and had a syncopal episode without sustained injury. Chest x- ray revealed mild cardiomegaly and possible underlying COPD. No definite acute pulmonary process. The patient is a non-smoker. White count 20.8. Hemoglobin 18.1. Platelets 233. D-dimer 4.93. Sodium 135. Potassium 4.9. Bicarb 15. BUN 26. Creatinine 1.72. Glucose 185. AST 41. ALT 25. Troponin negative x 1. proBNP 84. Viral screen negative. He is seen today in consultation in the emergency department. He is currently awake and alert in no acute distress. He is maintaining O2 saturations in the 90s on 2 L/min per nasal cannula. Has been afebrile. Hemodynamically stable. He is somewhat dyspneic with conversation. He has some bronchospasm and wheezing. He is currently receiving saline at 130 MLS per hour. VQ scan is pending. Review of Systems REVIEW OF SYSTEMS: CONSTITUTIONAL: Positive for generalized weakness, denies any recent significant weight loss or weight gain. EYES: Denies change in vision. EARS, NOSE, MOUTH, THROAT: Denies headaches, denies sore throat. CARDIOVASCULAR: Denies chest pain, palpitations or syncopal episodes. RESPIRATORY: Positive for shortness of breath, cough, congestion no hemoptysis. GASTROINTESTINAL: Positive for nausea vomiting GENITOURINARY: Denies hematuria, denies infections. MUSKULOSKELETAL: Denies pain, denies swelling. INTEGUMENTARY: Denies rash, denies eczema. NEUROLOGICAL: Denies recent memory loss, no recent seizure activity. PSYCHIATRIC: Denies anxiety, denies depression. HEMATOLOGIC/LYMPHATIC: Denies anemia, denies enlarged lymph nodes. Past Medical History Past Medical History: COPD, Hyperlipidemia, Hypertension, Osteoarthritis (OA) Additional Past Medical History / Comment(s): THYROID NODULE,FUCHS DISEASE OF THE [place]. History of Any Multi-Drug Resistant Organisms: None Reported Past Surgical History: Cholecystectomy, Joint Replacement Additional Past Surgical History / Comment(s): AKIRA CATARACTS, right knee replaced Past Anesthesia/Blood Transfusion Reactions: No Reported Reaction Past Psychological History: Anxiety Smoking Status: Never smoker Past Alcohol Use History: Occasional Past Drug Use History: None Reported - Past Family History Sister(s) Family Medical History: Cancer Additional Family Medical History / Comment(s): OVARIAN CA Medications and Allergies Home Medications Medication Instructions Recorded Confirmed Type Aspirin EC [Ecotrin Low Dose] 81 mg PO DAILY 05/23/14 12/25/23 History Pravastatin Sodium [Pravachol] 80 mg PO HS 05/23/14 12/25/23 History amLODIPine BESYLATE/BENAZEPRIL 1 cap PO DAILY 05/23/14 12/25/23 History [Lotrel 5-20 MG] ALPRAZolam [Xanax] 0.5 mg PO BID PRN 12/25/23 12/25/23 History Amoxic-Pot Clav 875-125Mg 1 tab PO BID 12/25/23 12/25/23 History [Augmentin 875-125] Tamsulosin HCl [Flomax] 0.4 mg PO DAILY 12/25/23 12/25/23 History Allergies Allergy/AdvReac Type Severity Reaction Status Date / Time No Known Allergies Allergy Verified 12/25/23 07:55 Physical Exam Vitals: Vital Signs Temp Pulse Resp BP Pulse Ox 12/25/23 15:47 90 16 92/69 98 12/25/23 10:42 98.6 F 107 H 18 119/69 95 12/25/23 09:35 106 H 20 114/71 94 L 12/25/23 08:34 103 H 22 97/51 96 12/25/23 07:44 100 19 103/83 98 12/25/23 07:10 91 20 69/48 94 L 12/25/23 07:02 90 12/25/23 06:55 90 12/25/23 06:33 35 H 12/25/23 06:28 101 H 35 H 130/53 94 L Intake and Output 12/25/23 12/25/23 12/25/23 06:59 14:59 22:59 Other: Weight 70.307 kg GENERAL EXAM: Alert, weak, 78-year-old male patient, on 2 L nasal cannula, fairly comfortable in no apparent distress. HEAD: Normocephalic. EYES: Normal reaction of pupils, equal size. NOSE: Clear with pink turbinates. THROAT: No erythema or exudates. NECK: No masses, no JVD. CHEST: No chest wall deformity. LUNGS: Equal air entry with bilateral wheeze. CVS: S1 and S2 normal with no audible murmur, regular rhythm. ABDOMEN: No hepatosplenomegaly, normal bowel sounds, no guarding or rigidity. SPINE: No scoliosis or deformity SKIN: No rashes CENTRAL NERVOUS SYSTEM: No focal deficits, tone is normal in all 4 extremities. EXTREMITIES: There is no peripheral edema. No clubbing, no cyanosis. Peripheral pulses are intact. Results - Laboratory Findings CBC and BMP: 12/25/23 06:38 12/25/23 06:38 PT/INR, D-dimer PT 10.5 sec (10.0-12.5) 12/25/23 06:38 INR 0.9 (<1.2) 12/25/23 06:38 D-Dimer 4.93 mg/L FEU (<0.60) H 12/25/23 06:38 Abnormal lab findings: Abnormal Labs 12/25/23 12/25/23 12/25/23 06:34 06:38 06:38 WBC 20.8 H Hgb 18.1 H Hct 53.1 H Neutrophils # 18.6 H Lymphocytes # 0.5 L Monocytes # 1.1 H APTT 21.9 L D-Dimer Sodium Carbon Dioxide BUN Creatinine Glucose POC Glucose (mg/dL) 194 H Plasma Lactic Acid Man Total Bilirubin Total Protein Albumin Urine Protein Urine Glucose (UA) Urine Blood Urine Bacteria Hyaline Casts Urine Mucus 12/25/23 12/25/23 12/25/23 06:38 06:38 06:38 WBC Hgb Hct Neutrophils # Lymphocytes # Monocytes # APTT D-Dimer 4.93 H Sodium 135 L Carbon Dioxide 15 L BUN 26 H Creatinine 1.72 H Glucose 185 H POC Glucose (mg/dL) Plasma Lactic Acid Man 4.4 H* Total Bilirubin 2.2 H Total Protein 8.4 H Albumin 5.1 H Urine Protein Urine Glucose (UA) Urine Blood Urine Bacteria Hyaline Casts Urine Mucus 12/25/23 12/25/23 07:33 10:35 WBC Hgb Hct Neutrophils # Lymphocytes # Monocytes # APTT D-Dimer Sodium Carbon Dioxide BUN Creatinine Glucose POC Glucose (mg/dL) Plasma Lactic Acid Man 2.3 H* Total Bilirubin Total Protein Albumin Urine Protein 1+ H Urine Glucose (UA) Trace H Urine Blood Small H Urine Bacteria Rare H Hyaline Casts 19 H Urine Mucus Few H - Diagnostic Findings Chest x-ray: image reviewed Assessment and Plan Assessment: Syncopal episode suspect secondary to orthostatic hypotension secondary to dehydration Acute kidney injury secondary to dehydration Generalized weakness with nausea and vomiting possibly related to viral illness Upper respiratory infection receiving 1 dose of Augmentin last evening Leukocytosis secondary to above Elevated D-dimer, VQ scan pending, doppler of the lower extremities negative Recent travels to [place] on a cruise 2 weeks ago, not feeling well since Hypertension Hyperlipidemia BPH Plan: The patient was seen and evaluated Chest x-ray, labs and medications reviewed VQ scan pending Check a Legionella antigen Procalcitonin pending Echocardiogram pending Continue antibiotics Add Symbicort, DuoNeb inhalations and Solu-Medrol Continue normal saline at 130 MLS per hour We will continue to follow and make further recommendations based on his c linical status I have personally seen and examined the patient, performed the documentation and the assessment and plan as written. Number of minutes spent on the visit: 20.
--- NOTE | 2023-12-25 16:42 | NM ---
EXAMINATION TYPE: NM pul vent and perfuse DATE OF EXAM: 12/25/2023 CLINICAL INDICATION: Male, 78 years old with history of Dyspnea, syncope, elevated d-dimer; COMPARISON: CXR 12/25/2023 TECHNIQUE: Utilizing inhalation of 33.2 mCi Tc 99m DTPA aerosol and intravenous injection of 4.4 mCi of Tc 99m MAA, ventilation and perfusion images are acquired post injection in multiple projections. FINDINGS: The radiotracer distribution on the lung ventilation images appears mildly heterogeneous. No large eda ng perfusion defects. No evidence of mismatched defects. IMPRESSION: Low probability for pulmonary embolism.
[2023-12-25] MEDS: IPRATROPIUM-ALBUTEROL 3 ML NEB INHALATION SCH (19:37)
[2023-12-25] MEDS: SYMBICORT 160-4.5 MCG INHALER INHALATION SCH (19:37)
[2023-12-25] MEDS: PRAVASTATIN SODIUM 80 MG TAB PO SCH (22:18)
[2023-12-26 06:07] LABS: Glucose,Whole Blood 154 mg/dL (70-110)
[2023-12-26] MEDS: PANTOPRAZOLE 40 MG TABLET PO SCH (06:49)
[2023-12-26] MEDS: HEPARIN SODIUM,PORCINE 5,000 UNIT/ML 1 ML VIAL SQ SCH (08:11)
[2023-12-26 09:59] LABS: Basophils % (A) 0 %; Eosinophils % (A) 0 %; HCT 38.1 % (39.0-53.0); Lymphocytes # (A) 0.4 k/uL (1.0-4.8); Lymphocytes % (A) 3 %; MCH 30.9 pg (25.0-35.0); MCHC 34.4 g/dL (31.0-37.0); MCV 89.6 fL (80.0-100.0); Mean Platelet Volume 7.9; Monocytes # (A) 0.5 k/uL (0-1.0); Monocytes % (A) 4 %; Neutrophils # (A) 12.5 k/uL (1.3-7.7); Neutrophils % (A) 94 %; Platelet Count 150 k/uL (150-450); RBC 4.25 m/uL (4.30-5.90); RDW 13.1 % (11.5-15.5); WBC 13.3 k/uL (3.8-10.6)
[2023-12-26 10:02] LABS: HGB 13.1 gm/dL (13.0-17.5)
[2023-12-26 10:25] LABS: African American GFR (CKD) >90 (>60 ml/min/1.73 sqM); Anion Gap 8 mmol/L; Blood Urea Nitrogen 30 mg/dL (9-20); Calcium 7.9 mg/dL (8.4-10.2); Carbon Dioxide 18 mmol/L (22-30); Chloride 113 mmol/L (98-107); Glucose 177 mg/dL (74-99); Non-African American GFR(CKD) 90 (>60 ml/min/1.73 sqM); Potassium 4.3 mmol/L (3.5-5.1); Sodium 139 mmol/L (137-145)
--- NOTE | 2023-12-26 10:26 | CA ---
Transthoracic Echo Report Name: Wm Saeed Age: 78 Gender: M : 1945 Exam Date: 12/25/2023 13:47 Exam Location: [facility] Ht (in): 65 Wt (lb): 155 Ordering Physician: Curt Deras MD Attending/Referring Phys: Employee Communications Specialist Mayra Whitfield RDCS Procedure CPT: Indications: SHORTNESS OF BREATH Cardiac Hx: Technical Quality: Fair Contrast 1: Total Dose (mL): Contrast 2: Total Dose (mL): MEASUREMENTS (Male / Female) Normal Values 2D ECHO LV Diastolic Diameter PLAX 5.0 cm 4.2 - 5.9 / 3.9 - 5.3 cm LV Systolic Diameter PLAX 2.1 cm IVS Diastolic Thickness 0.9 cm 0.6 - 1.0 / 0.6 - 0.9 cm LVPW Diastolic Thickness 1.0 cm 0.6 - 1.0 / 0.6 - 0.9 cm LV Relative Wall Thickness 0.4 RV Internal Dim ED PLAX 2.8 cm LVOT Diameter 2.3 cm Aortic Root Diameter 3.3 cm Ascending Aorta Diameter 3.5 cm DOPPLER AV Peak Velocity 123.5 cm/s AV Peak Gradient 6.1 mmHg AV Mean Velocity 88.3 cm/s AV Mean Gradient 3.4 mmHg AV Velocity Time Integral 19.8 cm LVOT Peak Velocity 103.4 cm/s LVOT Peak Gradient 4.3 mmHg LVOT Velocity Time Integral 18.4 cm LVOT Stroke Volume 74.4 cm??? LVOT Stroke Volume Index 41.9 ml/m??? LVOT Cardiac Index 4609.6 cm???/min???m??? AV Area Cont Eq vti 3.8 cm??? AV Area Cont Eq pk 3.4 cm??? MV Peak Velocity 160.7 cm/s MV Peak Gradient 10.3 mmHg MV Mean Velocity 104.0 cm/s MV Mean Gradient 4.9 mmHg MV Velocity Time Integral 22.1 cm TR Peak Velocity 266.3 cm/s TR Peak Gradient 28.4 mmHg Right Atrial Pressure 5.0 mmHg Pulmonary Artery Systolic Pressu 33.4 mmHg Right Ventricular Systolic Press 33.4 mmHg PV Peak Velocity 94.7 cm/s PV Peak Gradient 3.6 mmHg FINDINGS Left Ventricle Left ventricular ejection fraction is estimated at 55-60 %. Left ventricular cavity size normal. Left ventricular wall thickness normal. No obvious regional wall motion abnormalities. Right Ventricle Normal right ventricular size and function. Right ventricular systolic pressure within normal limits. Right Atrium Normal right atrial size. Left Atrium Normal left atrial size. Mitral Valve Structurally normal mitral valve. No mitral stenosis, regurgitation or prolapse. Aortic Valve Trileaflet aortic valve. No aortic valve stenosis or regurgitation. Tricuspid Valve Structurally normal tricuspid valve. No tricuspid stenosis. Mild tricuspid regurgitation. Pulmonic Valve Pulmonic valve not well visualized. No pulmonic stenosis. No pulmonic regurgitation. Pericardium No pericardial effusion. Aorta Normal size aortic root and proximal ascending aorta. CONCLUSIONS Technically difficult study. LV size and systolic function is normal. No significant abnormality on the Doppler exam. No pericardial effusion Previewed by: Dr. Murali Costello MD (Electronically Signed) Final Date: 26 Dec 2023 10:25
[2023-12-26 11:40] LABS: Glucose,Whole Blood 167 mg/dL (70-110)
[2023-12-26] MEDS: INSULIN ASPART (NovoLOG) 100 UNIT/ML VIAL SQ SCH (11:54)
--- NOTE | 2023-12-26 13:22 | P.PN ---
Subjective Progress Note Date: 12/26/23 patient is a 78-year-old gentleman with past medical history significant for hypertension, hyperlipidemia presented to the ER because of shortness of breath and weakness for the last 2 weeks. Patient and his recently traveled back from [place] and he states that he has not been feeling well since then. Patient has been having cough and shortness of breath on exertion that has been worsening. Shortness of breath is present on exertion. There is no complaint of fever or chills. Patient was having nausea and vomiting. Patient was seen at a walk-in clinic yesterday and was given Augmentin which she took last night. Patient this morning while trying to use restroom had a syncopal episode. Because of this shortness of breath and weakness patient was brought to the ER Initial lab work done in the ER showed WBC 20.8, hemoglobin 18.1, platelet count 233, D-dimer 4.93, INR 0.9, sodium 135, potassium 4.9, BUN 26, creatinine 1.72, glucose 194, lactate 4.4, bilirubin 2.2 Influenza A not detected Influenza B not detected RSV not detected COVID-19 not detected EKG done in the ER showed heart rate of97 , no ST segment elevation or depression seen, no T-wave inversions seen. Chest x-ray done in the ER showed borderline heart size and possibly underlying COPD, no definite acute process Patient admitted to internal medicine service 12/25. Patient seen and examined. Duplex ultrasound of lower extremities negative for DVT. VQ scan done showed low probability for PE. 2D echo done showed LVEF of 55 to 60%. No obvious regional wall motion abnormalities, no pericardial effusion. Patient doing much better, currently not requiring any oxygen. REVIEW OF SYSTEMS: CONSTITUTIONAL: No fever, no malaise,. CARDIOVASCULAR: No chest pain, no palpitations, no syncope. PULMONARY: No shortness of breath, no cough, GASTROINTESTINAL: No diarrhea, no nausea, no vomiting, no abdominal pain. NEUROLOGICAL: No headaches, no weakness, PHYSICAL EXAMINATION: GENERAL: The patient is alert and oriented x3, not in any acute distress. Well developed, well nourished. HEENT: Pupils are round and equally reacting to light. EOMI. No scleral icterus. No conjunctival pallor. Normocephalic, atraumatic. No pharyngeal erythema. No thyromegaly. CARDIOVASCULAR: S1 and S2 present. No murmurs, rubs, or gallops. PULMONARY: Chest is clear to auscultation, no wheezing or crackles. ABDOMEN: Soft, nontender, nondistended, normoactive bowel sounds. No palpable organomegaly. MUSCULOSKELETAL: No joint swelling or deformity. EXTREMITIES: No cyanosis, clubbing, or pedal edema. NEUROLOGICAL: Gross neurological examination did not reveal any focal deficits. SKIN: No rashes. Assessment and plan Acute hypoxic respiratory failure Acute kidney injury Lactic acidosis Syncopal episode Pneumonia Exertional dyspnea Elevated D-dimer Hypertension Hyperlipidemia Monitor vital signs Monitor CBC Monitor CMP Continue telemetry monitoring Ordered blood culture Ordered Pro-Jeferson Serial lactic acid levels Continue IV fluids Continue IV Rocephin azithromycin Duplex ultrasound of lower extremities negative for DVT VQ scan done showed low probability for PE Heparin pharmacy dose was discontinued Hold blood pressure medications for now Pulmonary following Labs and medication were reviewed.. Continue same treatment. Continue with symptomatic treatment. Resume home medication. Monitor labs and vitals. DVT and GI prophylaxis. Further recommendations as per clinical course of the patient Dictation was produced using Contrib dictation software. please excuse any grammatical, word or spelling errors. Objective - Vital Signs Vital signs: Vital Signs Temp 98.4 F 12/26/23 08:05 Pulse 104 H 12/26/23 09:18 Resp 19 12/26/23 08:05 BP 129/79 12/26/23 08:05 Pulse Ox 96 12/26/23 09:05 FiO2 Intake & Output 12/25/23 12/26/23 12/26/23 18:59 06:59 18:59 Intake Total 103.771 360 Output Total 200 Balance 103.771 -200 360 Weight 70.307 kg Intake: Intake, IV Titration 103.771 Amount Heparin Sod,Pork in 0.45% 103.771 NaCl 25,000 unit In 0.45 % NaCl 1 250ml.bag @ 18 UNITS/KG/HR 12.655 mls/hr IV .[id number] MICHAEL Rx#: [id number] Oral 360 Output: Urine 200 Other: Voiding Method Toilet Toilet # Voids 2 - Labs CBC & Chem 7: 12/26/23 08:57 12/26/23 08:57 Labs: Abnormal Lab Results - Last 24 Hours (Table) 12/25/23 12/25/23 12/25/23 Range/Units 07:33 08:39 10:35 WBC (3.8-10.6) k/uL RBC (4.30-5.90) m/uL Hct (39.0-53.0) % Neutrophils # (1.3-7.7) k/uL Lymphocytes # (1.0-4.8) k/uL APTT (22.0-30.0) sec Chloride (98-107) mmol/L Carbon Dioxide (22-30) mmol/L BUN (9-20) mg/dL Glucose (74-99) mg/dL POC Glucose (mg/dL) (70-110) mg/dL Plasma Lactic Acid Man 2.3 H* (0.7-2.0) mmol/L Calcium (8.4-10.2) mg/dL Procalcitonin 1.62 H (0.02-0.09) ng/mL Urine Protein 1+ H (Negative) Urine Glucose (UA) Trace H (Negative) Urine Blood Small H (Negative) Urine Bacteria Rare H (None) /hpf Hyaline Casts 19 H (0-2) /lpf Urine Mucus Few H (None) /hpf 12/25/23 12/25/23 12/25/23 Range/Units 16:12 16:12 20:53 WBC (3.8-10.6) k/uL RBC (4.30-5.90) m/uL Hct (39.0-53.0) % Neutrophils # (1.3-7.7) k/uL Lymphocytes # (1.0-4.8) k/uL APTT 97.4 H (22.0-30.0) sec Chloride (98-107) mmol/L Carbon Dioxide (22-30) mmol/L BUN (9-20) mg/dL Glucose (74-99) mg/dL POC Glucose (mg/dL) (70-110) mg/dL Plasma Lactic Acid Man 2.2 H* 4.4 H* (0.7-2.0) mmol/L Calcium (8.4-10.2) mg/dL Procalcitonin (0.02-0.09) ng/mL Urine Protein (Negative) Urine Glucose (UA) (Negative) Urine Blood (Negative) Urine Bacteria (None) /hpf Hyaline Casts (0-2) /lpf Urine Mucus (None) /hpf 12/26/23 12/26/23 12/26/23 Range/Units 06:05 08:57 08:57 WBC 13.3 H (3.8-10.6) k/uL RBC 4.25 L (4.30-5.90) m/uL Hct 38.1 L (39.0-53.0) % Neutrophils # 12.5 H (1.3-7.7) k/uL Lymphocytes # 0.4 L (1.0-4.8) k/uL APTT (22.0-30.0) sec Chloride (98-107) mmol/L Carbon Dioxide (22-30) mmol/L BUN (9-20) mg/dL Glucose (74-99) mg/dL POC Glucose (mg/dL) 154 H (70-110) mg/dL Plasma Lactic Acid Man 2.1 H* (0.7-2.0) mmol/L Calcium (8.4-10.2) mg/dL Procalcitonin (0.02-0.09) ng/mL Urine Protein (Negative) Urine Glucose (UA) (Negative) Urine Blood (Negative) Urine Bacteria (None) /hpf Hyaline Casts (0-2) /lpf Urine Mucus (None) /hpf 12/26/23 Range/Units 08:57 WBC (3.8-10.6) k/uL RBC (4.30-5.90) m/uL Hct (39.0-53.0) % Neutrophils # (1.3-7.7) k/uL Lymphocytes # (1.0-4.8) k/uL APTT (22.0-30.0) sec Chloride 113 H (98-107) mmol/L Carbon Dioxide 18 L (22-30) mmol/L BUN 30 H (9-20) mg/dL Glucose 177 H (74-99) mg/dL POC Glucose (mg/dL) (70-110) mg/dL Plasma Lactic Acid Man (0.7-2.0) mmol/L Calcium 7.9 L (8.4-10.2) mg/dL Procalcitonin (0.02-0.09) ng/mL Urine Protein (Negative) Urine Glucose (UA) (Negative) Urine Blood (Negative) Urine Bacteria (None) /hpf Hyaline Casts (0-2) /lpf Urine Mucus (None) /hpf
[2023-12-26 16:37] LABS: Glucose,Whole Blood 205 mg/dL (70-110)
--- NOTE | 2023-12-26 16:55 | P.PN ---
Subjective Progress Note Date: 12/26/23 Principal diagnosis: Syncopal episode most likely secondary to orthostatic hypotension and dehydration This is a pleasant 78-year-old male patient with a known history of hyperli pidemia, hypertension, anxiety who had been having issues with shortness of breath, cough congestion and weakness. He had been on a cruise to [place] 2 weeks ago. He has not felt well since. He had been seen in a walk-in clinic yesterday and given a prescription for Augmentin which he took 1 dose. Approximately 2:00 this morning he was feeling nauseous and proceeded to vomit. He was up to the bathroom at 6 AM and had a syncopal episode without sustained injury. Chest x-ray revealed mild cardiomegaly and possible underlying COPD. No definite acute pulmonary process. The patient is a non-smoker. White count 20.8. Hemoglobin 18.1. Platelets 233. D-dimer 4.93. Sodium 135. Potassium 4 .9. Bicarb 15. BUN 26. Creatinine 1.72. Glucose 185. AST 41. ALT 25. Troponin negative x 1. proBNP 84. Viral screen negative. He is seen today in consultation in the emergency department. He is currently awake and alert in no acute distress. He is maintaining O2 saturations in the 90s on 2 L/min per nasal cannula. Has been afebrile. Hemodynamically stable. He is somewhat dyspneic with conversation. He has some bronchospasm and wheezing. He is currently receiving saline at 130 MLS per hour. VQ scan is pending. Patient was reevaluated today on 12/26/2023, patient is doing great, relatively asymptomatic, the workup since admission seems to be all nondiagnostic. VQ scan is negative venous Doppler is negative echocardiogram is basically unremarkable. WBC count is 13.3 hemoglobin is 13.1 electrolytes are normal renal profile is normal, influenza A influenza B and urine Legionella antigen all negative. COVID-19 is negative RSV is negative Objective - Vital Signs Vital signs: Vital Signs Temp 98.2 F 12/26/23 15:55 Pulse 105 H 12/26/23 15:55 Resp 18 12/26/23 15:55 BP 131/74 12/26/23 15:55 Pulse Ox 93 L 12/26/23 15:55 FiO2 Intake & Output 12/25/23 12/26/23 12/26/23 18:59 06:59 18:59 Intake Total 103.771 360 Output Total 200 Balance 103.771 -200 360 Weight 70.307 kg Intake: Intake, IV Titration 103.771 Amount Heparin Sod,Pork in 0.45% 103.771 NaCl 25,000 unit In 0.45 % NaCl 1 250ml.bag @ 18 UNITS/KG/HR 12.655 mls/hr IV .[id number] COUNTS INCLUDE 234 BEDS AT [facility] Rx#: [id number] Oral 360 Output: Urine 200 Other: Voiding Method Toilet Toilet # Voids 2 - Exam GENERAL EXAM: Revealed a 78-year-old white male in no distress, on room air. HEAD: Normocephalic. EYES: Normal reaction of pupils, equal size. NOSE: Clear with pink turbinates. THROAT: No erythema or exudates. NECK: No masses, no JVD. CHEST: No chest wall deformity. LUNGS: Equal air entry no crackles rhonchi / wheezes CVS: S1 and S2 normal with no audible murmur, regular rhythm. ABDOMEN: No hepatosplenomegaly, normal bowel sounds, no guarding or rigidity. SKIN: No rashes CENTRAL NERVOUS SYSTEM: Alert oriented x 3 no gross focal deficits EXTREMITIES: No clubbing edema or cyanosis. - Labs CBC & Chem 7: 12/26/23 08:57 12/26/23 08:57 Labs: Abnormal Lab Results - Last 24 Hours (Table) 12/25/23 12/25/23 12/25/23 Range/Units 08:39 16:12 16:12 WBC (3.8-10.6) k/uL RBC (4.30-5.90) m/uL Hct (39.0-53.0) % Neutrophils # (1.3-7.7) k/uL Lymphocytes # (1.0-4.8) k/uL APTT 97.4 H (22.0-30.0) sec Chloride (98-107) mmol/L Carbon Dioxide (22-30) mmol/L BUN (9-20) mg/dL Glucose (74-99) mg/dL POC Glucose (mg/dL) (70-110) mg/dL Plasma Lactic Acid Man 2.2 H* (0.7-2.0) mmol/L Calcium (8.4-10.2) mg/dL Procalcitonin 1.62 H (0.02-0.09) ng/mL 12/25/23 12/26/23 12/26/23 Range/Units 20:53 06:05 08:57 WBC (3.8-10.6) k/uL RBC (4.30-5.90) m/uL Hct (39.0-53.0) % Neutrophils # (1.3-7.7) k/uL Lymphocytes # (1.0-4.8) k/uL APTT (22.0-30.0) sec Chloride (98-107) mmol/L Carbon Dioxide (22-30) mmol/L BUN (9-20) mg/dL Glucose (74-99) mg/dL POC Glucose (mg/dL) 154 H (70-110) mg/dL Plasma Lactic Acid Man 4.4 H* 2.1 H* (0.7-2.0) mmol/L Calcium (8.4-10.2) mg/dL Procalcitonin (0.02-0.09) ng/mL 12/26/23 12/26/23 12/26/23 Range/Units 08:57 08:57 11:39 WBC 13.3 H (3.8-10.6) k/uL RBC 4.25 L (4.30-5.90) m/uL Hct 38.1 L (39.0-53.0) % Neutrophils # 12.5 H (1.3-7.7) k/uL Lymphocytes # 0.4 L (1.0-4.8) k/uL APTT (22.0-30.0) sec Chloride 113 H (98-107) mmol/L Carbon Dioxide 18 L (22-30) mmol/L BUN 30 H (9-20) mg/dL Glucose 177 H (74-99) mg/dL POC Glucose (mg/dL) 167 H (70-110) mg/dL Plasma Lactic Acid Man (0.7-2.0) mmol/L Calcium 7.9 L (8.4-10.2) mg/dL Procalcitonin (0.02-0.09) ng/mL 12/26/23 12/26/23 Range/Units 12:51 16:36 WBC (3.8-10.6) k/uL RBC (4.30-5.90) m/uL Hct (39.0-53.0) % Neutrophils # (1.3-7.7) k/uL Lymphocytes # (1.0-4.8) k/uL APTT (22.0-30.0) sec Chloride (98-107) mmol/L Carbon Dioxide (22-30) mmol/L BUN (9-20) mg/dL Glucose (74-99) mg/dL POC Glucose (mg/dL) 205 H (70-110) mg/dL Plasma Lactic Acid Man 2.4 H* (0.7-2.0) mmol/L Calcium (8.4-10.2) mg/dL Procalcitonin (0.02-0.09) ng/mL Assessment and Plan Assessment: Impression Syncopal episode suspect secondary to orthostatic hypotension secondary to dehydration Acute kidney injury secondary to dehydration Acute bronchitis and bronchospasm, on bronchodilators and antibiotics Generalized weakness with nausea and vomiting possibly related to viral illness Upper respiratory infection receiving 1 dose of Augmentin last evening Leukocytosis secondary to above Elevated D-dimer, negative VQ scan and negative Doppler Recent travels to [place] on a cruise 2 weeks ago, not feeling well since Hypertension Hyperlipidemia BPH Recommendation: Continue present supportive care measures Continue hydration continue bronchodilators for underlying COPD Transition Solu-Medrol to prednisone in the next 24 hours Consider discharge planning in the next 24 hours. Will continue to follow Time with Patient: Less than 30
[2023-12-26] MEDS: SODIUM CHLORIDE 0.9% 500 ML 500 ML IV ONE (18:02)
[2023-12-26 20:06] LABS: Glucose,Whole Blood 180 mg/dL (70-110)
[2023-12-27 06:21] LABS: Glucose,Whole Blood 183 mg/dL (70-110)
[2023-12-27 08:29] LABS: Basophils % (A) 0 %; Eosinophils % (A) 0 %; HCT 36.4 % (39.0-53.0); HGB 12.6 gm/dL (13.0-17.5); Lymphocytes # (A) 0.4 k/uL (1.0-4.8); Lymphocytes % (A) 3 %; MCH 31.1 pg (25.0-35.0); MCHC 34.7 g/dL (31.0-37.0); MCV 89.5 fL (80.0-100.0); Monocytes # (A) 0.4 k/uL (0-1.0); Monocytes % (A) 4 %; Neutrophils # (A) 9.5 k/uL (1.3-7.7); Neutrophils % (A) 92 %; Platelet Count 117 k/uL (150-450); RBC 4.07 m/uL (4.30-5.90); RDW 13.3 % (11.5-15.5); WBC 10.4 k/uL (3.8-10.6)
[2023-12-27 08:42] LABS: ALT 20 U/L (4-49); AST 43 U/L (17-59); African American GFR (CKD) >90 (>60 ml/min/1.73 sqM); Albumin 3.4 g/dL (3.5-5.0); Alkaline Phosphatase 60 U/L (38-126); Anion Gap 8 mmol/L; Blood Urea Nitrogen 23 mg/dL (9-20); Calcium 7.7 mg/dL (8.4-10.2); Carbon Dioxide 20 mmol/L (22-30); Chloride 115 mmol/L (98-107); Glucose 161 mg/dL (74-99); Non-African American GFR(CKD) >90 (>60 ml/min/1.73 sqM); Potassium 3.8 mmol/L (3.5-5.1); Sodium 143 mmol/L (137-145); Total Bilirubin 0.8 mg/dL (0.2-1.3); Total Protein 5.5 g/dL (6.3-8.2)
[2023-12-27 11:28] LABS: Glucose,Whole Blood 248 mg/dL (70-110)
[2023-12-27] MEDS: CEFDINIR 300 MG CAP PO SCH (12:51)
[2023-12-27] MEDS: methylPREDNISolone 4 MG TAB TAPER PO SCH (12:51)
--- NOTE | 2023-12-27 12:54 | P.PN ---
Subjective Progress Note Date: 12/27/23 This is a pleasant 78-year-old male patient with a known history of hyperlipidemia, hypertension, anxiety who had been having issues with shortness of breath, cough congestion and weakness. He had been on a cruise to [place] 2 weeks ago. He has not felt well since. He had been seen in a walk-in clinic ye day and given a prescription for Augmentin which he took 1 dose. Approximately 2:00 this morning he was feeling nauseous and proceeded to vomit. He was up to the bathroom at 6 AM and had a syncopal episode without sustained injury. Chest x-ray revealed mild cardiomegaly and possible underlying COPD. No definite acute pulmonary process. The patient is a non-smoker. White count 20.8. Hemoglobin 18.1. Platelets 233. D-dimer 4.93. Sodium 135. Potassium 4.9. Bicarb 15. BUN 26. Creatinine 1.72. Glucose 185. AST 41. ALT 25. Troponin negative x 1. proBNP 84. Viral screen negative. He is seen today in consultation in the emergency department. He is currently awake and alert in no acute distress. He is maintaining O2 saturations in the 90s on 2 L/min per nasal cannula. Has been afebrile. Hemodynamically stable. He is somewhat dyspneic with conversation. He has some bronchospasm and wheezing. He is currently receiving saline at 130 MLS per hour. VQ scan is pending. Patient was reevaluated today on 12/26/2023, patient is doing great, relatively asymptomatic, the workup since admission seems to be all nondiagnostic. VQ scan is negative venous Doppler is negative echocardiogram is basically unremarkable. WBC count is 13.3 hemoglobin is 13.1 electrolytes are normal renal profile is normal, influenza A influenza B and urine Legionella antigen all negative. CO VID-19 is negative RSV is negative The patient is seen today December 27, 2023 in follow-up on the selective care unit. He is currently sitting up in bed. Awake and alert in no acute distress. Denies any worsening shortness of breath, cough or congestion. He is maintaining good O2 saturations in the upper 90s on room air. VQ scan ruled out pulmonary embolism. Cultures revealed no growth. White count 10.4. Hemoglobin 12.6. Platelets 117. Sodium 143. Potassium 3.8. Bicarb 20. BUN 23. Cre atinine 0.57. Glucose 161. He is continued on DuoNeb ventilations, Symbicort, Solu-Medrol. Antibiotics in the form of ceftriaxone and azithromycin. Objective - Vital Signs Vital signs: Vital Signs Temp 98 F 12/27/23 08:50 Pulse 91 12/27/23 08:50 Resp 18 12/27/23 08:50 BP 147/77 12/27/23 08:50 Pulse Ox 98 12/27/23 08:50 FiO2 Intake & Output 12/26/23 12/27/23 12/27/23 18:59 06:59 18:59 Intake Total 720 136 Balance 720 136 Intake: Oral 720 136 Other: Voiding Method Toilet Toilet Toilet # Voids 2 1 - Exam GENERAL EXAM: Alert, pleasant 78-year-old gentleman, sitting up in bed, on room air, comfortable in no apparent distress. HEAD: Normocephalic. EYES: Normal reaction of pupils, equal size. NOSE: Clear with pink turbinates. THROAT: No erythema or exudates. NECK: No masses, no JVD. CHEST: No chest wall deformity. LUNGS: Equal air entry with no crackles, wheeze, rhonchi or dullness. CVS: S1 and S2 normal with no audible murmur, regular rhythm. ABDOMEN: No hepatosplenomegaly, normal bowel sounds, no guarding or rigidity. SPINE: No scoliosis or deformity SKIN: No rashes CENTRAL NERVOUS SYSTEM: No focal deficits, tone is normal in all 4 extremities. EXTREMITIES: There is no peripheral edema. No clubbing, no cyanosis. Peripheral pulses are intact. - Labs CBC & Chem 7: 12/27/23 07:33 12/27/23 07:33 Labs: Abnormal Lab Results - Last 24 Hours (Table) 12/26/23 12/26/23 12/26/23 Range/Units 12:51 16:22 16:36 RBC (4.30-5.90) m/uL Hgb (13.0-17.5) gm/dL Hct (39.0-53.0) % Plt Count (150-450) k/uL Neutrophils # (1.3-7.7) k/uL Lymphocytes # (1.0-4.8) k/uL Chloride (98-107) mmol/L Carbon Dioxide (22-30) mmol/L BUN (9-20) mg/dL Creatinine (0.66-1.25) mg/dL Glucose (74-99) mg/dL POC Glucose (mg/dL) 205 H (70-110) mg/dL Plasma Lactic Acid Man 2.4 H* 3.2 H* (0.7-2.0) mmol/L Calcium (8.4-10.2) mg/dL Total Protein (6.3-8.2) g/dL Albumin (3.5-5.0) g/dL 12/26/23 12/26/23 12/27/23 Range/Units 19:07 20:05 06:19 RBC (4.30-5.90) m/uL Hgb (13.0-17.5) gm/dL Hct (39.0-53.0) % Plt Count (150-450) k/uL Neutrophils # (1.3-7.7) k/uL Lymphocytes # (1.0-4.8) k/uL Chloride (98-107) mmol/L Carbon Dioxide (22-30) mmol/L BUN (9-20) mg/dL Creatinine (0.66-1.25) mg/dL Glucose (74-99) mg/dL POC Glucose (mg/dL) 180 H 183 H (70-110) mg/dL Plasma Lactic Acid Man 2.8 H* (0.7-2.0) mmol/L Calcium (8.4-10.2) mg/dL Total Protein (6.3-8.2) g/dL Albumin (3.5-5.0) g/dL 12/27/23 12/27/23 12/27/23 Range/Units 07:33 07:33 07:33 RBC 4.07 L (4.30-5.90) m/uL Hgb 12.6 L (13.0-17.5) gm/dL Hct 36.4 L (39.0-53.0) % Plt Count 117 L (150-450) k/uL Neutrophils # 9.5 H (1.3-7.7) k/uL Lymphocytes # 0.4 L (1.0-4.8) k/uL Chloride 115 H (98-107) mmol/L Carbon Dioxide 20 L (22-30) mmol/L BUN 23 H (9-20) mg/dL Creatinine 0.57 L (0.66-1.25) mg/dL Glucose 161 H (74-99) mg/dL POC Glucose (mg/dL) (70-110) mg/dL Plasma Lactic Acid Man 2.7 H* (0.7-2.0) mmol/L Calcium 7.7 L (8.4-10.2) mg/dL Total Protein 5.5 L (6.3-8.2) g/dL Albumin 3.4 L (3.5-5.0) g/dL 12/27/23 12/27/23 Range/Units 10:50 11:26 RBC (4.30-5.90) m/uL Hgb (13.0-17.5) gm/dL Hct (39.0-53.0) % Plt Count (150-450) k/uL Neutrophils # (1.3-7.7) k/uL Lymphocytes # (1.0-4.8) k/uL Chloride (98-107) mmol/L Carbon Dioxide (22-30) mmol/L BUN (9-20) mg/dL Creatinine (0.66-1.25) mg/dL Glucose (74-99) mg/dL POC Glucose (mg/dL) 248 H (70-110) mg/dL Plasma Lactic Acid Man 3.2 H* (0.7-2.0) mmol/L Calcium (8.4-10.2) mg/dL Total Protein (6.3-8.2) g/dL Albumin (3.5-5.0) g/dL Microbiology - Last 24 Hours (Table) 12/25/23 07:33 Blood Culture - Preliminary Blood 12/25/23 07:33 Blood Culture - Preliminary Blood Assessment and Plan Assessment: Syncopal episode suspect secondary to orthostatic hypotension secondary to dehydration VQ scan revealed low probability for PE Acute kidney injury secondary to dehydration, recovered Generalized weakness with nausea and vomiting possibly related to viral illness Upper respiratory infection receiving 1 dose of Augmentin Leukocytosis secondary to above, improved Elevated D-dimer, doppler of the lower extremities negative. VQ scan revealed low probability Recent travels to [place] on a cruise 2 weeks ago, not feeling well since Hypertension Hyperlipidemia BPH Former smoker Plan: The patient was seen and evaluated Labs and medications reviewed VQ scan revealed low probability of PE Stable and on room air Cleared for discharge from the pulmonary standpoint I have personally seen and examined the patient, performed the documentation and the assessment and plan as written. Number of minutes spent on the visit: 10.
--- NOTE | 2023-12-27 13:10 | P.PN ---
Subjective Progress Note Date: 12/27/23 patient is a 78-year-old gentleman with past medical history significant for hypertension, hyperlipidemia presented to the ER because of shortness of breath and weakness for the last 2 weeks. Patient and his recently traveled back from [place] [employer] [place] and he states that he has not been feeling well since then. Patient has been having cough and shortness of breath on exertion that has been worsening. Shortness of breath is present on exertion. There is no complaint of fever or chills. Patient was having nausea and vomiting. Patient was seen at a walk-in clinic yesterday and was given Augmentin which she took last night. Patient this morning while trying to use restroom had a syncopal episode. Because of this shortness of breath and weakness patient was brought to the ER Initial lab work done in the ER showed WBC 20.8, hemoglobin 18.1, platelet count 233, D-dimer 4.93, INR 0.9, sodium 135, potassium 4.9, BUN 26, creatinine 1.72, glucose 194, lactate 4.4, bilirubin 2.2 Influenza A not detected Influenza B not detected RSV not detected COVID-19 not detected EKG done in the ER showed heart rate of97 , no ST segment elevation or depression seen, no T-wave inversions seen. Chest x-ray done in the ER showed borderline heart size and possibly underlying COPD, no definite acute process Patient admitted to internal medicine service 12/25. Patient seen and examined. Duplex ultrasound of lower extremities negative for DVT. VQ scan done showed low probability for PE. 2D echo done showed LVEF of 55 to 60%. No obvious regional wall motion abnormalities, no pericardial effusion. Patient doing much better, currently not requiring any oxygen. 12/26. Patient seen and examined. Breathing is improved. Talked to patient about ambulating more today with possible discharge tomorrow REVIEW OF SYSTEMS: CONSTITUTIONAL: No fever, no malaise,. CARDIOVASCULAR: No chest pain, no palpitations, no syncope. PULMONARY: No shortness of breath, no cough, GASTROINTESTINAL: No diarrhea, no nausea, no vomiting, no abdominal pain. NEUROLOGICAL: No headaches, no weakness, PHYSICAL EXAMINATION: GENERAL: The patient is alert and oriented x3, not in any acute distress. Well developed, well nourished. HEENT: Pupils are round and equally reacting to light. EOMI. No scleral icterus. No conjunctival pallor. Normocephalic, atraumatic. No pharyngeal erythema. No thyromegaly. CARDIOVASCULAR: S1 and S2 present. No murmurs, rubs, or gallops. PULMONARY: Chest is clear to auscultation, no wheezing or crackles. ABDOMEN: Soft, nontender, nondistended, normoactive bowel sounds. No palpable organomegaly. MUSCULOSKELETAL: No joint swelling or deformity. EXTREMITIES: No cyanosis, clubbing, or pedal edema. NEUROLOGICAL: Gross neurological examination did not reveal any focal deficits. SKIN: No rashes. Assessment and plan Acute hypoxic respiratory failure Acute kidney injury Lactic acidosis Syncopal episode Pneumonia Exertional dyspnea Elevated D-dimer Hypertension Hyperlipidemia Monitor vital signs Monitor CBC Monitor CMP Continue telemetry monitoring Serial lactic acid levels DC fluids Continue IV Rocephin azithromycin Duplex ultrasound of lower extremities negative for DVT VQ scan done showed low probability for PE Heparin pharmacy dose was discontinued Hold blood pressure medications for now Pulmonary following Labs and medication were reviewed.. Continue same treatment. Continue with symptomatic treatment. Resume home medication. Monitor labs and vitals. DVT and GI prophylaxis. Further recommendations as per clinical course of the patient Dictation was produced using [employer] dictation software. please excuse any grammatical, word or spelling errors. Objective - Vital Signs Vital signs: Vital Signs Temp 98 F 12/27/23 08:50 Pulse 91 12/27/23 08:50 Resp 18 12/27/23 08:50 BP 147/77 12/27/23 08:50 Pulse Ox 98 12/27/23 08:50 FiO2 Intake & Output 12/26/23 12/27/23 12/27/23 18:59 06:59 18:59 Intake Total 720 136 Balance 720 136 Intake: Oral 720 136 Other: Voiding Method Toilet Toilet Toilet # Voids 2 1 - Labs CBC & Chem 7: 12/27/23 07:33 12/27/23 07:33 Labs: Abnormal Lab Results - Last 24 Hours (Table) 12/26/23 12/26/23 12/26/23 Range/Units 12:51 16:22 16:36 RBC (4.30-5.90) m/uL Hgb (13.0-17.5) gm/dL Hct (39.0-53.0) % Plt Count (150-450) k/uL Neutrophils # (1.3-7.7) k/uL Lymphocytes # (1.0-4.8) k/uL Chloride (98-107) mmol/L Carbon Dioxide (22-30) mmol/L BUN (9-20) mg/dL Creatinine (0.66-1.25) mg/dL Glucose (74-99) mg/dL POC Glucose (mg/dL) 205 H (70-110) mg/dL Plasma Lactic Acid Man 2.4 H* 3.2 H* (0.7-2.0) mmol/L Calcium (8.4-10.2) mg/dL Total Protein (6.3-8.2) g/dL Albumin (3.5-5.0) g/dL 12/26/23 12/26/23 12/27/23 Range/Units 19:07 20:05 06:19 RBC (4.30-5.90) m/uL Hgb (13.0-17.5) gm/dL Hct (39.0-53.0) % Plt Count (150-450) k/uL Neutrophils # (1.3-7.7) k/uL Lymphocytes # (1.0-4.8) k/uL Chloride (98-107) mmol/L Carbon Dioxide (22-30) mmol/L BUN (9-20) mg/dL Creatinine (0.66-1.25) mg/dL Glucose (74-99) mg/dL POC Glucose (mg/dL) 180 H 183 H (70-110) mg/dL Plasma Lactic Acid Man 2.8 H* (0.7-2.0) mmol/L Calcium (8.4-10.2) mg/dL Total Protein (6.3-8.2) g/dL Albumin (3.5-5.0) g/dL 12/27/23 12/27/23 12/27/23 Range/Units 07:33 07:33 07:33 RBC 4.07 L (4.30-5.90) m/uL Hgb 12.6 L (13.0-17.5) gm/dL Hct 36.4 L (39.0-53.0) % Plt Count 117 L (150-450) k/uL Neutrophils # 9.5 H (1.3-7.7) k/uL Lymphocytes # 0.4 L (1.0-4.8) k/uL Chloride 115 H (98-107) mmol/L Carbon Dioxide 20 L (22-30) mmol/L BUN 23 H (9-20) mg/dL Creatinine 0.57 L (0.66-1.25) mg/dL Glucose 161 H (74-99) mg/dL POC Glucose (mg/dL) (70-110) mg/dL Plasma Lactic Acid Man 2.7 H* (0.7-2.0) mmol/L Calcium 7.7 L (8.4-10.2) mg/dL Total Protein 5.5 L (6.3-8.2) g/dL Albumin 3.4 L (3.5-5.0) g/dL 12/27/23 12/27/23 Range/Units 10:50 11:26 RBC (4.30-5.90) m/uL Hgb (13.0-17.5) gm/dL Hct (39.0-53.0) % Plt Count (150-450) k/uL Neutrophils # (1.3-7.7) k/uL Lymphocytes # (1.0-4.8) k/uL Chloride (98-107) mmol/L Carbon Dioxide (22-30) mmol/L BUN (9-20) mg/dL Creatinine (0.66-1.25) mg/dL Glucose (74-99) mg/dL POC Glucose (mg/dL) 248 H (70-110) mg/dL Plasma Lactic Acid Man 3.2 H* (0.7-2.0) mmol/L Calcium (8.4-10.2) mg/dL Total Protein (6.3-8.2) g/dL Albumin (3.5-5.0) g/dL Microbiology - Last 24 Hours (Table) 12/25/23 07:33 Blood Culture - Preliminary Blood 12/25/23 07:33 Blood Culture - Preliminary Blood
[2023-12-27] MEDS: SODIUM CHLORIDE 0.9% 500 ML 500 ML IV ONE (15:00)
[2023-12-27 16:47] LABS: Glucose,Whole Blood 147 mg/dL (70-110)
[2023-12-27 20:04] LABS: Glucose,Whole Blood 216 mg/dL (70-110)
[2023-12-28 06:42] LABS: Glucose,Whole Blood 139 mg/dL (70-110)
[2023-12-28] MEDS ORDERED: predniSONE 20 MG TAB PO SCH (09:00)
[2023-12-28 10:55] VITALS: BP 150/88; PULSE 92; RESP 18; TEMP 98.1
--- NOTE | 2023-12-28 11:59 | P.PN ---
Subjective Progress Note Date: 12/28/23 This is a pleasant 78-year-old male patient with a known history of hyperlipidemia, hypertension, anxiety who had been having issues with shortness of breath, cough congestion and weakness. He had been on a cruise to [place] 2 weeks ago. He has not felt well since. He had been seen in a walk-in clinic ye day and given a prescription for Augmentin which he took 1 dose. Approximately 2:00 this morning he was feeling nauseous and proceeded to vomit. He was up to the bathroom at 6 AM and had a syncopal episode without sustained injury. Chest x-ray revealed mild cardiomegaly and possible underlying COPD. No definite acute pulmonary process. The patient is a non-smoker. White count 20.8. Hemoglobin 18.1. Platelets 233. D-dimer 4.93. Sodium 135. Potassium 4.9. Bicarb 15. BUN 26. Creatinine 1.72. Glucose 185. AST 41. ALT 25. Troponin negative x 1. proBNP 84. Viral screen negative. He is seen today in consultation in the emergency department. He is currently awake and alert in no acute distress. He is maintaining O2 saturations in the 90s on 2 L/min per nasal cannula. Has been afebrile. Hemodynamically stable. He is somewhat dyspneic with conversation. He has some bronchospasm and wheezing. He is currently receiving saline at 130 MLS per hour. VQ scan is pending. Patient was reevaluated today on 12/26/2023, patient is doing great, relatively asymptomatic, the workup since admission seems to be all nondiagnostic. VQ scan is negative venous Doppler is negative echocardiogram is basically unremarkable. WBC count is 13.3 hemoglobin is 13.1 electrolytes are normal renal profile is normal, influenza A influenza B and urine Legionella antigen all negative. CO VID-19 is negative RSV is negative The patient is seen today December 27, 2023 in follow-up on the selective care unit. He is currently sitting up in bed. Awake and alert in no acute distress. Denies any worsening shortness of breath, cough or congestion. He is maintaining good O2 saturations in the upper 90s on room air. VQ scan ruled out pulmonary embolism. Cultures revealed no growth. White count 10.4. Hemoglobin 12.6. Platelets 117. Sodium 143. Potassium 3.8. Bicarb 20. BUN 23. Cre atinine 0.57. Glucose 161. He is continued on DuoNeb ventilations, Symbicort, Solu-Medrol. Antibiotics in the form of ceftriaxone and azithromycin. The patient is seen today December 28, 2023 in follow-up on the selective care unit. He is currently sitting up in a chair at the bedside. Awake and alert in no acute distress. Maintaining good O2 saturations in the 90s on room air. He is feeling well. Feeling back to his baseline. Anxious to go home. He denies any worsening shortness of breath, cough or congestion. No fever or chills. Glucose 139. He remains on DuoNeb ventilations, Symbicort, Medrol Dosepak. Antibiotics in the form of Omnicef. Heparin for DVT prophylaxis. Objective - Vital Signs Vital signs: Vital Signs Temp 97.7 F 12/28/23 11:10 Pulse 79 12/28/23 11:10 Resp 17 12/28/23 11:10 BP 176/81 12/28/23 11:10 Pulse Ox 98 12/28/23 11:10 FiO2 Intake & Output 12/27/23 12/28/23 12/28/23 18:59 06:59 18:59 Intake Total 372 Balance 372 Intake: Oral 372 Other: Voiding Method Toilet Toilet Toilet # Voids 1 - Exam GENERAL EXAM: Alert, 78-year-old gentleman, up in a chair, on room air, in no apparent distress. HEAD: Normocephalic. EYES: Normal reaction of pupils, equal size. NOSE: Clear with pink turbinates. THROAT: No erythema or exudates. NECK: No masses, no JVD. CHEST: No chest wall deformity. LUNGS: Equal air entry with no crackles, wheeze, rhonchi or dullness. CVS: S1 and S2 normal with no audible murmur, regular rhythm. ABDOMEN: No hepatosplenomegaly, normal bowel sounds, no guarding or rigidity. SPINE: No scoliosis or deformity SKIN: No rashes CENTRAL NERVOUS SYSTEM: No focal deficits, tone is normal in all 4 extremities. EXTREMITIES: There is no peripheral edema. No clubbing, no cyanosis. Peripheral pulses are intact. - Labs CBC & Chem 7: 12/27/23 07:33 12/27/23 07:33 Labs: Abnormal Lab Results - Last 24 Hours (Table) 12/27/23 12/27/23 12/27/23 Range/Units 14:10 16:46 17:12 POC Glucose (mg/dL) 147 H (70-110) mg/dL Plasma Lactic Acid Man 3.5 H* 2.3 H* (0.7-2.0) mmol/L 12/27/23 12/28/23 Range/Units 20:03 06:41 POC Glucose (mg/dL) 216 H 139 H (70-110) mg/dL Plasma Lactic Acid Man (0.7-2.0) mmol/L Microbiology - Last 24 Hours (Table) 12/25/23 07:33 Blood Culture - Preliminary Blood 12/25/23 07:33 Blood Culture - Preliminary Blood Assessment and Plan Assessment: Syncopal episode suspect secondary to orthostatic hypotension secondary to dehydration, VQ scan revealed low probability for PE Acute kidney injury secondary to dehydration, recovered Generalized weakness with nausea and vomiting possibly related to viral illness Upper respiratory infection receiving 1 dose of Augmentin in the outpatient setting Leukocytosis secondary to above, improved Elevated D-dimer, doppler of the lower extremities negative. VQ scan revealed low probability Recent travels to [place] on a cruise 2 weeks ago, not feeling well since Hypertension Hyperlipidemia BPH Former smoker Plan: The patient was seen and evaluated Medications reviewed Stable and on room air Continue Symbicort, albuterol HFA, Medrol Dosepak To complete a course of antibiotics in the form of Omnicef Cleared for discharge from the pulmonary standpoint Follow-up in our office in 1 week This patient was seen independently by the pulmonary nurse practitioner addressing pulmonary issues I have personally seen and examined the patient, performed the documentation and the assessment and plan as written. Number of minutes spent on the visit: 24.
--- NOTE | 2023-12-28 13:48 | P.DS ---
Providers Date of admission: 12/25/23 08:33 Expected date of discharge: 12/28/23 Attending physician: Nadir Cowart Consults: 12/25/23 10:15 Consult Physician Routine Consulting Provider: Braeden Walker Consult Reason/Comments: Acute respiratory failure Do you want consulting provider notified?: Yes Primary care physician: [facility] Course: Discharge diagnoses; Acute hypoxic respiratory failure Acute kidney injury Acute tracheobronchitis Lactic acidosis Syncopal episode Pneumonia Exertional dyspnea Elevated D-dimer Hypertension Hyperlipidemia Hospital course; patient is a 78-year-old gentleman with past medical history significant for hypertension, hyperlipidemia presented to the ER because of shortness of breath and weakness for the last 2 weeks. Patient and his recently traveled back from [place] and he states that he has not been feeling well since then. Patient has been having cough and shortness of breath on exertion that has been worsening. Shortness of breath is present on exertion. There is no complaint of fever or chills. Patient was having nausea and vomiting. Patient was seen at a walk-in clinic yesterday and was given Augmentin which she took last night. Patient this morning while trying to use restroom had a syncopal episode. Because of this shortness of breath and weakness patient was brought to the ER Initial lab work done in the ER showed WBC 20.8, hemoglobin 18.1, platelet count 233, D-dimer 4.93, INR 0.9, sodium 135, potassium 4.9, BUN 26, creatinine 1.72, glucose 194, lactate 4.4, bilirubin 2.2 Influenza A not detected Influenza B not detected RSV not detected COVID-19 not detected EKG done in the ER showed heart rate of97 , no ST segment elevation or depression seen, no T-wave inversions seen. Chest x-ray done in the ER showed borderline heart size and possibly underlying COPD, no definite acute process Patient admitted to internal medicine service 12/25. Patient seen and examined. Duplex ultrasound of lower extremities negative for DVT. VQ scan done showed low probability for PE. 2D echo done showed LVEF of 55 to 60%. No obvious regional wall motion abnormalities, no pericardial effusion. Patient doing much better, currently not requiring any oxygen. 12/26. Patient seen and examined. Breathing is improved. Talked to patient about ambulating more today with possible discharge tomorrow 12/27. Patient seen and examined. Being discharged on oral antibiotics, Medrol Dosepak. Outpatient follow-up with pulmonology PHYSICAL EXAMINATION: GENERAL: The patient is alert and oriented x3, not in any acute distress. Well developed, well nourished. HEENT: Pupils are round and equally reacting to light. EOMI. No scleral icterus. No conjunctival pallor. Normocephalic, atraumatic. No pharyngeal erythema. No thyromegaly. CARDIOVASCULAR: S1 and S2 present. No murmurs, rubs, or gallops. PULMONARY: Chest is clear to auscultation, no wheezing or crackles. ABDOMEN: Soft, nontender, nondistended, normoactive bowel sounds. No palpable organomegaly. MUSCULOSKELETAL: No joint swelling or deformity. EXTREMITIES: No cyanosis, clubbing, or pedal edema. NEUROLOGICAL: Gross neurological examination did not reveal any focal deficits. SKIN: No rashes. Dictation was produced using [employer] dictation software. please excuse any grammatical, word or spelling errors. Patient Condition at Discharge: Good Plan - Discharge Summary Discharge Rx Participant: No New Discharge Prescriptions: New Albuterol Inhaler [Ventolin Hfa Inhaler] 2 puff INHALATION Q6H PRN #1 each PRN Reason: Shortness Of Breath Budesonide/Formoterol Fumarate [Budesonide-Formoterol 160-4.5] 1 puff PO BID #1 each methylPREDNISolone Dose Pack [Medrol Dose Pack] 4 mg PO DIRECTED #1 packet Cefdinir [Omnicef] 300 mg PO BID 4 Days #8 cap Continue Pravastatin Sodium [Pravachol] 80 mg PO HS amLODIPine BESYLATE/BENAZEPRIL [Lotrel 5-20 MG] 1 cap PO DAILY Aspirin EC [Ecotrin Low Dose] 81 mg PO DAILY ALPRAZolam [Xanax] 0.5 mg PO BID PRN PRN Reason: Anxiety Tamsulosin HCl [Flomax] 0.4 mg PO DAILY Discontinued Amoxic-Pot Clav 875-125Mg [Augmentin 875-125] 1 tab PO BID Discharge Medication List Aspirin EC [Ecotrin Low Dose] 81 mg PO DAILY 05/23/14 [History] Pravastatin Sodium [Pravachol] 80 mg PO HS 05/23/14 [History] amLODIPine BESYLATE/BENAZEPRIL [Lotrel 5-20 MG] 1 cap PO DAILY 05/23/14 [History] ALPRAZolam [Xanax] 0.5 mg PO BID PRN 12/25/23 [History] Tamsulosin HCl [Flomax] 0.4 mg PO DAILY 12/25/23 [History] Albuterol Inhaler [Ventolin Hfa Inhaler] 2 puff INHALATION Q6H PRN #1 each 12/28/23 [Rx] Budesonide/Formoterol Fumarate [Budesonide-Formoterol 160-4.5] 1 puff PO BID #1 each 12/28/23 [Rx] Cefdinir [Omnicef] 300 mg PO BID 4 Days #8 cap 12/28/23 [Rx] methylPREDNISolone Dose Pack [Medrol Dose Pack] 4 mg PO DIRECTED #1 packet 12/28/23 [Rx] Follow up Appointment(s)/Referral(s): Javier Robbins DO [Primary Care Provider] - 1-2 days Braeden Walker MD [STAFF PHYSICIAN] - 1 Week Discharge Disposition: HOME SELF-CARE
--- NOTE | 2024-01-01 10:25 | CDI ---
Documentation Clarification Form Date: 01/01/2024 09:44:18 AM From: Colleen Hylton RN, CCDS Phone: [phone] Admit Date: 12/25/2023 08:33:00 AM Patient Name: Wm Saeed Visit Number: [id number] Discharge Date: 12/28/2023 12:00:00 PM ATTENTION: The Clinical Documentation Specialists (CDI) and [facility] Coding Staff appreciate your assistance in clarifying documentation. Please respond to the clarification below the line at the bottom and electronically sign. The CDI & [facility] Coding staff will review the response and follow-up if needed. Please note: Queries are made part of the Legal Health Record. If you have any questions, please contact the author of this message via ITS. Dr. Curt Deras The patient had pneumonia, tachycardia and leukocytosis. Based on this information and the findings below, is there an additional diagnosis that is clinically appropriate for this patient? History/Risk Factors: COPD, HLD, HTN, OA and recent travel on [employer]. Presented with SOB, weakness, nausea and vomiting. Admitted with acute hypoxic respiratory failure, TRA, pneumonia and lactic acidosis. Clinical Indicators: ED: "Dyspnea, SIRS, Hypotension." 12/27 Pulmonary: "Generalized weakness with nausea and vomiting possibly related to viral illness." 12/27 Discharge summary: "Acute hypoxic respiratory failure, acute kidney injury, acute tracheobronchitis, lactic acidosis, pneumonia. Patient being discharged on oral antibiotics and Medrol Dosepak." 12/24 WBC 20.8, Neutrophils 18.6, Procalcitonin 1.62, Cr 1.72 12/24 Lactic acid: 4.4-2.3-2.2-4.4 12/25 Lactic acid: 2.1-2.4-3.2-2.8 12/24 Vital signs: HR 118, RR 35, BP 130/53-69/48-103/83-97/51 Treatment: IV Solumedrol 125mg x1 on 12/24; IV Solumedrol 60mg Q6H 12/24-12/26; Antibiotics: IV Azithromycin 500mg daily 12/24-12/26; IV Rocephin 2gm x1 on 12/24; IV Rocephin 2gm Q24H 12/25-12/26; IV Bolus: 1L 0.9 NS IV bolus x3 12/24-12/26 Is there an additional diagnosis that is clinically appropriate for this patient? [ x] Sepsis, present on admission [ ] Viral Sepsis, present on admission [ ] No additional diagnosis [ ] Other, please specify [ ] Unable to determine SIRS Criteria: 2 or more of the following may indicate SIRS Temperature < 96.8F (36C) or > 101.0F (38.3C) Heart Rate > 90 bpm Respiratory Rate > 20 breaths/min or PaCO2 < 32 mmHg White Blood Cell Count > 12,000 or < 4,000 cells/mm3 or > 10% bands MTDD
== END 2023-12-28 12:00 | disposition home or self-care (01) | DRG 871 ==
LOC: EC 06:24 → 3SCARD 08:33
PROVIDERS: ADMIT Hospitalist; ATTEND Hospitalist
DX: A41.9 Sepsis, unspecified organism (principal); J18.9 Pneumonia, unspecified organism; J96.01 Acute respiratory failure with hypoxia; N17.9 Acute kidney failure, unspecified; J44.0 Chronic obstructive pulmonary disease with (acute) lower respiratory infection; E87.20 Acidosis, unspecified; I11.9 Hypertensive heart disease without heart failure; E86.0 Dehydration; R79.89 Other specified abnormal findings of blood chemistry; E78.5 Hyperlipidemia, unspecified; I95.1 Orthostatic hypotension; N40.0 Benign prostatic hyperplasia without lower urinary tract symptoms; Z96.651 Presence of right artificial knee joint; Z79.82 Long term (current) use of aspirin; Z79.899 Other long term (current) drug therapy; Z11.52 Encounter for screening for COVID-19; Z87.891 Personal history of nicotine dependence
CPT/HCPCS: 36415; 71046; 78582; 80048; 80053; 81001; 83605; 83735; 83880; 84145; 84484; 85025; 85379; 85610; 85730; 87040; 87449; 87636; 93005; 93306; 93970; 94640; 94760; 96361; 96365; 96366; 96367; 96375; 96376; 99291

== ENCOUNTER → 2024-07-06 | Outpatient (CLI) | payer MEDICARE ==
--- NOTE | 2024-07-06 10:54 | MR ---
EXAMINATION TYPE: MR brain wo con DATE OF EXAM: 07/06/2024 10:38 AM COMPARISON: None. CLINICAL INDICATION: Male, 78 years old with history of CVA; PHH, Cognitive impairment. TECHNIQUE: Multi planar, multi sequence imaging was performed through the brain including: T1, T2, In version recovery, Diffusion weighted imaging, and gradient echo imaging. No gadolinium was given. FINDINGS: Mild cerebral atrophy with proportional dilation of ventricular system. Scattered foci of high T2 s ignal intensity are seen within the periventricular white matter. Midline structures show no abnormal ity. Diffusion-weighted imaging shows no evidence of restricted diffusion. The susceptibility weighte d images do not reveal any evidence for micro-hemorrhage. Susceptibility blooming artifact in the bas al ganglia bilaterally compatible with mineralization. The bone marrow signal is within normal limits. Paranasal sinuses and mastoid air cells: No significant paranasal sinus disease. Trace bilateral mast oid air cell effusions. Visualized orbits: Bilateral aphakia IMPRESSION: 1. Mild cerebral atrophy. No evidence of intracranial mass or acute/subacute infarct. 2. Nonspecific white matter changes, likely secondary to small vessel ischemic disease. 3. Trace bilateral mastoid air cell effusions. [facility], , 07/06/2024 10:52 AM
== END | disposition home or self-care (01) ==
LOC: RADMRIMAIN 09:49
PROVIDERS: ATTEND Psychiatry & Neurology Neurology
DX: G31.84 Mild cognitive impairment of uncertain or unknown etiology (principal); H74.8X3 Other specified disorders of middle ear and mastoid, bilateral; H27.03 Aphakia, bilateral
CPT/HCPCS: 70551